=== PATIENT | male | born 1950 | race Two or more races ===

== ENCOUNTER → 2017-02-09 | Outpatient (CLI) | payer BC ==
[2017-02-09 08:13] LABS: Urine RBC None Seen /hpf (0 - 3)
[2017-02-09 08:22] LABS: Basophils # (auto) 0 uL; Basophils % (auto) 0.6 % (0.0-2.0); Eosinophils # (auto) 0.1 uL; Eosinophils % (auto) 2.3 % (0.0-7.0); Hematocrit 43.8 % (41.0-53.0); Lymphocytes # (auto) 1.4 uL; Mean Corpuscular Hgb Conc. 34.3 g/dL (32.0-36.0); Mean Corpuscular Volume 93.2 fL (80.0-100.0); Mean Platelet Volume 10.1 fL (7.4-10.4); Monocytes # (auto) 0.5 uL; Monocytes % (auto) 8.8 % (0.0-12.0); Neutrophils # (auto) 3.4 uL; Neutrophils % (auto) 63.3 % (37.0-80.0); Platelet Count (auto) 150 10^3/uL (140-450); Red Cell Distribution Width 12.8 % (11.6-16.0); White Blood Cell 5.4 10^3/uL (4.4-10.8)
[2017-02-09 08:27] LABS: Urine Bilirubin Negative (Negative); Urine Blood Negative /uL (Negative); Urine Color Yellow (Yellow); Urine Glucose Normal (Normal); Urine Ketone Negative (Negative); Urine Mucus FEW (None Seen); Urine Nitrite Negative (Negative); Urine Urobilinogen Normal (Negative); Urine pH 5.5 (5.0-8.0)
[2017-02-09 09:01] LABS: Albumin 3.5 g/dL (3.4-5.0); BUN/Creatinine Ratio 19.3; Bilirubin, Total 0.7 mg/dL (0.2-1.0); Calcium 8.5 mg/dL (8.5-10.1); Potassium 3.6 mmol/L (3.5-5.1); Total Protein 7.1 g/dL (6.4-8.2)
== END | disposition home or self-care (01) ==
LOC: LAB 07:53
PROVIDERS: ATTEND Family Medicine
DX: E11.8 Type 2 diabetes mellitus with unspecified complications (principal); E78.5 Hyperlipidemia, unspecified
CPT/HCPCS: 36415; 80053; 80061; 81001; 82043; 82306; 83036; 84153; 84154; 85025

== ENCOUNTER → 2018-02-03 | Day surgery (SDC) | payer BC ==
[2018-01-31 16:09] LABS: Basophils # (auto) 0 uL; Basophils % (auto) 0.5 % (0.0-2.0); Eosinophils # (auto) 0.2 uL; Eosinophils % (auto) 2.3 % (0.0-7.0); Hematocrit 41.9 % (41.0-53.0); Hemoglobin 14.4 g/dL (13.5-17.5); Lymphocytes # (auto) 1.8 uL; Lymphocytes % (auto) 26.4 % (10.0-50.0); Mean Corpuscular Hemoglobin 32.7 pg (28.0-32.0); Mean Corpuscular Hgb Conc. 34.3 g/dL (32.0-36.0); Mean Corpuscular Volume 95.3 fL (80.0-100.0); Monocytes # (auto) 0.7 uL; Monocytes % (auto) 10.1 % (0.0-12.0); Neutrophils # (auto) 4.2 uL; Neutrophils % (auto) 60.7 % (37.0-80.0); Nucleated Red Blood Cells % 0.3 %; Platelet Count (auto) 160 10^3/uL (140-450); Red Cell Distribution Width 13.4 % (11.8-14.3); White Blood Cell 6.9 10^3/uL (4.4-10.8)
[2018-01-31 16:13] LABS: Urine Bacteria NONE SEEN /hpf (None Seen); Urine Blood Negative /uL (Negative); Urine Specific Gravity 1.018 (1.001-1.035); Urine WBC 2 /hpf (0 - 3)
[2018-01-31 16:20] LABS: Albumin 3.9 g/dL (3.4-5.0); BUN/Creatinine Ratio 13.7; Bilirubin, Total 0.7 mg/dL (0.2-1.0); Calcium 8.7 mg/dL (8.5-10.1); Potassium 3.8 mmol/L (3.5-5.1); Total Protein 7.5 g/dL (6.4-8.2)
[2018-01-31 16:24] LABS: INR 0.96 (0.9-1.15); Partial Thromboplastin Time 25.7 sec (22.64-33.71); Prothrombin Time 10.5 sec (9.37-12.3)
[~2018-02-03] VITALS: Ht 180.3 cm; Wt 100.7 kg
[~2018-02-03] MED LIST: ASPI81TA27 PO; BUPIVACAINE HCL 50 ML ONE; KETOROLAC TROMETH 30 MG/ML 1ML VIAL ONE; LIDOCAINE HCL 2 %PF INJ 10ML AMP IJ ONE; LIDOCAINE W/ EPINEPHRINE 2% INJ 20ML VIAL ONE; MIDAZOLAM HCL 1MG/1ML-2 ML VIAL ONE; MORPHINE SULFATE 4 MG/ML SYR/VIAL IV PRN; NALOXONE HCL 0.4 MG/ML VIAL IV PRN; ONDANSETRON HCL 4 MG/2 ML VIAL IV ONE; PROMETHAZINE HCL 25 MG/ML 1ML IV ONE; PROPOFOL 10 MG/ML 20 ML IV ONE; ROCURONIUM 10MG/ML 10ML VIAL IV ONE; SUCCINYLCHOLINE CHLORIDE 20 MG/ML 10ML VIAL IV ONE; ceFAZolin 1GM/50ML 50 ML IV ONE; ePHEDrine SULFATE 50 MG/ML AMP ONE; fentaNYL CITRATE 100 MCG/2 ML VL ONE; hydrALAZINE HCL 20 MG/ML VL IV PRN
[2018-02-03 12:10] VITALS: BP 122/71
== END | disposition home or self-care (01) ==
LOC: SUR 06:58
PROVIDERS: ATTEND Orthopaedic Surgery
DX: M75.102 Unspecified rotator cuff tear or rupture of left shoulder, not specified as traumatic (principal); R22.32 Localized swelling, mass and lump, left upper limb; M75.42 Impingement syndrome of left shoulder; M13.812 Other specified arthritis, left shoulder; E66.9 Obesity, unspecified; Z68.31 Body mass index [BMI] 31.0-31.9, adult; Z90.49 Acquired absence of other specified parts of digestive tract
CPT/HCPCS: 23180; 23412; 23415; 36415; 80053; 81001; 85025; 85610; 85730; 88307; 88311; J0330; J0690; J1885; J2250; J2405; J2550; J2704; J3010; J3490

== ENCOUNTER 2018-02-04 03:00 | Emergency (ER) | payer BC ==
[~2018-02-04] VITALS: Ht 180.3 cm; Wt 100.7 kg
[~2018-02-04 03:00] MED LIST changes: -BUPIVACAINE HCL 50 ML ONE; -KETOROLAC TROMETH 30 MG/ML 1ML VIAL ONE; -LIDOCAINE HCL 2 %PF INJ 10ML AMP IJ ONE; -LIDOCAINE W/ EPINEPHRINE 2% INJ 20ML VIAL ONE; -MIDAZOLAM HCL 1MG/1ML-2 ML VIAL ONE; -MORPHINE SULFATE 4 MG/ML SYR/VIAL IV PRN; -NALOXONE HCL 0.4 MG/ML VIAL IV PRN; -ONDANSETRON HCL 4 MG/2 ML VIAL IV ONE; -PROMETHAZINE HCL 25 MG/ML 1ML IV ONE; -PROPOFOL 10 MG/ML 20 ML IV ONE; -ROCURONIUM 10MG/ML 10ML VIAL IV ONE; -SUCCINYLCHOLINE CHLORIDE 20 MG/ML 10ML VIAL IV ONE; -ceFAZolin 1GM/50ML 50 ML IV ONE; -ePHEDrine SULFATE 50 MG/ML AMP ONE; -fentaNYL CITRATE 100 MCG/2 ML VL ONE; -hydrALAZINE HCL 20 MG/ML VL IV PRN
[2018-02-04] MEDS ORDERED: SODIUM CHLORIDE 0.9% 1,000 ML IV ONE (07:19)
[2018-02-04] MEDS ORDERED: KETOROLAC TROMETH 30 MG/ML 1ML VIAL IV ONE (07:30)
[2018-02-04] MEDS ORDERED: MORPHINE SULFATE 8mg/ml INJ SDV IV ONE (07:30)
[2018-02-04] MEDS ORDERED: METOCLOPRAMIDE HCL 5MG/ml INJ 2ml VIAL IV ONE (07:30)
[2018-02-04 08:03] LABS: Basophils # (auto) 0 uL; Basophils % (auto) 0.2 % (0.0-2.0); Eosinophils # (auto) 0 uL; Eosinophils % (auto) 0.3 % (0.0-7.0); Hematocrit 39.9 % (41.0-53.0); Hemoglobin 13.9 g/dL (13.5-17.5); Lymphocytes # (auto) 1.2 uL; Mean Corpuscular Hemoglobin 32.9 pg (28.0-32.0); Mean Corpuscular Hgb Conc. 34.9 g/dL (32.0-36.0); Mean Corpuscular Volume 94.2 fL (80.0-100.0); Monocytes # (auto) 0.7 uL; Monocytes % (auto) 7.6 % (0.0-12.0); Neutrophils # (auto) 7.7 uL; Neutrophils % (auto) 79.9 % (37.0-80.0); Platelet Count (auto) 152 10^3/uL (140-450); Red Blood Cells 4.23 10^6/uL (4.5-5.90); Red Cell Distribution Width 13.4 % (11.8-14.3); White Blood Cell 9.7 10^3/uL (4.4-10.8)
[2018-02-04 08:21] LABS: Calcium 8.9 mg/dL (8.5-10.1); Magnesium 2.1 mg/dL (1.6-2.6); Potassium 3.9 mmol/L (3.5-5.1)
[2018-02-04 08:24] LABS: BUN/Creatinine Ratio 11.4
[2018-02-04] MEDS ORDERED: PROMETHAZINE HCL 25 MG/ML 1ML IV ONE (11:00)
[2018-02-04] MEDS ORDERED: MEPERIDINE HCL (50 MG/ML) 1 ML VIAL IV ONE (11:00)
[2018-02-04] MEDS ORDERED: SODIUM CHLORIDE 0.9% 1,000 ML IV SCH (11:01)
[2018-02-04] MEDS ORDERED: LORazepam 0.5 MG TAB PO PRN (11:15)
[2018-02-04] MEDS ORDERED: MORPHINE SULFATE 8mg/ml INJ SDV IV PRN ×2 (11:15)
[2018-02-04] MEDS ORDERED: ACETAMINOPHEN 500 MG TAB PO PRN (11:15)
[2018-02-04] MEDS ORDERED: NITROGLYCERIN 0.4 MG SL TAB SL PRN (11:15)
[2018-02-04] MEDS ORDERED: PROMETHAZINE HCL 25 MG/ML 1ML IV PRN (11:15)
[2018-02-04] MEDS ORDERED: TEMAZEPAM 15 MG CAP PO PRN (11:15)
[2018-02-04] MEDS ORDERED: HYDROcodone-ACET 5/325MG TAB PO PRN (11:15)
[2018-02-04] MEDS ORDERED: LACTULOSE 20Gm/30ML SOLN PO PRN (11:15)
[2018-02-04 12:30] VITALS: BP 145/80
[2018-02-05] MEDS ORDERED: PANTOPRAZOLE 40 MG TAB PO SCH (10:00)
== END 2018-02-04 12:17 | disposition home or self-care (01) ==
LOC: ER 03:10 → TELE 03:11 → UNDOADMIN 03:11 → ER 12:17
DX: M25.512 Pain in left shoulder (principal); E11.65 Type 2 diabetes mellitus with hyperglycemia
CPT/HCPCS: 36415; 73200; 80048; 83735; 85025; 96361; 96374; 96375; 99285; J1885; J2270; J2765; J7030

== ENCOUNTER → 2018-04-19 | Outpatient (CLI) | payer BC ==
[2018-04-19 08:06] LABS: Basophils # (auto) 0 uL; Basophils % (auto) 0.4 % (0.0-2.0); Eosinophils # (auto) 0.2 uL; Eosinophils % (auto) 2.7 % (0.0-7.0); Hematocrit 45.4 % (41.0-53.0); Hemoglobin 15.5 g/dL (13.5-17.5); Lymphocytes # (auto) 1.7 uL; Lymphocytes % (auto) 25.4 % (10.0-50.0); Mean Corpuscular Hemoglobin 30.9 pg (28.0-32.0); Mean Corpuscular Hgb Conc. 34.1 g/dL (32.0-36.0); Mean Corpuscular Volume 90.7 fL (80.0-100.0); Monocytes # (auto) 0.5 uL; Neutrophils # (auto) 4.3 uL; Neutrophils % (auto) 63.5 % (37.0-80.0); Platelet Count (auto) 163 10^3/uL (140-450); Red Cell Distribution Width 12.9 % (11.8-14.3); White Blood Cell 6.7 10^3/uL (4.4-10.8)
[2018-04-19 08:41] LABS: Urine Bacteria NONE SEEN /hpf (None Seen); Urine Blood Negative /uL (Negative); Urine Specific Gravity 1.021 (1.001-1.035); Urine WBC 1 /hpf (0 - 3)
[2018-04-19 08:47] LABS: Albumin 3.9 g/dL (3.4-5.0); Bilirubin, Total 0.7 mg/dL (0.2-1.0); Calcium 9.5 mg/dL (8.5-10.1); Potassium 4.1 mmol/L (3.5-5.1); Total Protein 8.1 g/dL (6.4-8.2)
== END | disposition home or self-care (01) ==
LOC: LAB 07:21
PROVIDERS: ATTEND Family Medicine
DX: I10 Essential (primary) hypertension (principal); E78.5 Hyperlipidemia, unspecified; N40.0 Benign prostatic hyperplasia without lower urinary tract symptoms; E11.65 Type 2 diabetes mellitus with hyperglycemia
CPT/HCPCS: 36415; 80053; 80061; 81001; 82043; 82270; 82306; 83036; 84153; 85025

== ENCOUNTER → 2018-10-04 | Outpatient (CLI) | payer BC, MEDICARE ==
[2018-10-04 08:33] LABS: Basophils # (auto) 0 uL; Basophils % (auto) 0.3 % (0.0-2.0); Eosinophils # (auto) 0.2 uL; Eosinophils % (auto) 3.3 % (0.0-7.0); Hematocrit 44.9 % (41.0-53.0); Hemoglobin 15.2 g/dL (13.5-17.5); Lymphocytes # (auto) 1.5 uL; Lymphocytes % (auto) 23.8 % (10.0-50.0); Mean Corpuscular Hgb Conc. 33.9 g/dL (32.0-36.0); Mean Corpuscular Volume 91.5 fL (80.0-100.0); Monocytes # (auto) 0.6 uL; Neutrophils # (auto) 3.9 uL; Neutrophils % (auto) 63.6 % (37.0-80.0); Nucleated Red Blood Cells % 0.1 %; Platelet Count (auto) 152 10^3/uL (140-450); Red Blood Cells 4.91 10^6/uL (4.5-5.90); Red Cell Distribution Width 13.7 % (11.8-14.3); White Blood Cell 6.2 10^3/uL (4.4-10.8)
[2018-10-04 08:43] LABS: Calcium 9.6 mg/dL (8.5-10.1); Potassium 4.8 mmol/L (3.5-5.1)
== END | disposition home or self-care (01) ==
LOC: LAB 07:13
PROVIDERS: ATTEND Internal Medicine
DX: E11.9 Type 2 diabetes mellitus without complications (principal); E78.5 Hyperlipidemia, unspecified; N40.0 Benign prostatic hyperplasia without lower urinary tract symptoms; I10 Essential (primary) hypertension
CPT/HCPCS: 36415; 80053; 80061; 82043; 83036; 84443; 85025

== ENCOUNTER → 2019-10-03 | Outpatient (CLI) | payer BC, MEDICARE ==
[~2019-10-03] MED LIST changes: +ASPI-404 PO; -ASPI81TA27 PO
[2019-10-03 08:50] LABS: Basophils # (auto) 0 uL; Basophils % (auto) 0.4 % (0.0-2.0); Eosinophils # (auto) 0.2 uL; Hematocrit 41.2 % (41.0-53.0); Hemoglobin 14.2 g/dL (13.5-17.5); Lymphocytes # (auto) 1.4 uL; Lymphocytes % (auto) 27.1 % (10.0-50.0); Mean Corpuscular Hemoglobin 31.7 pg (28.0-32.0); Mean Corpuscular Hgb Conc. 34.4 g/dL (32.0-36.0); Mean Corpuscular Volume 92.3 fL (80.0-100.0); Monocytes # (auto) 0.6 uL; Monocytes % (auto) 10.5 % (0.0-12.0); Neutrophils # (auto) 3.2 uL; Nucleated Red Blood Cells % 0.1 %; Platelet Count (auto) 130 10^3/uL (140-450); Red Blood Cells 4.46 10^6/uL (4.5-5.90); Red Cell Distribution Width 13.4 % (11.8-14.3); White Blood Cell 5.4 10^3/uL (4.4-10.8)
[2019-10-03 09:14] LABS: Albumin 3.8 g/dL (3.4-5.0); Potassium 4.1 mmol/L (3.5-5.1)
[2019-10-03 09:19] LABS: BUN/Creatinine Ratio 7.6; Bilirubin, Total 0.9 mg/dL (0.2-1.0); Total Protein 7.6 g/dL (6.4-8.2)
== END | disposition home or self-care (01) ==
LOC: LAB 08:20
PROVIDERS: ATTEND Internal Medicine
DX: I10 Essential (primary) hypertension (principal); E11.9 Type 2 diabetes mellitus without complications; E78.5 Hyperlipidemia, unspecified; N40.0 Benign prostatic hyperplasia without lower urinary tract symptoms
CPT/HCPCS: 36415; 80053; 80061; 82043; 83036; 84153; 84154; 84443; 85025

== ENCOUNTER → 2019-10-11 | Outpatient (CLI) | payer BC | END | disposition home or self-care (01) | LOC: LAB 13:57 | PROVIDERS: ATTEND Internal Medicine | DX: I10 Essential (primary) hypertension (principal); E11.9 Type 2 diabetes mellitus without complications; E78.5 Hyperlipidemia, unspecified; N40.0 Benign prostatic hyperplasia without lower urinary tract symptoms | CPT/HCPCS: 82270 ==

== ENCOUNTER → 2020-01-09 | Outpatient (CLI) | payer BC ==
[2020-01-09 10:46] LABS: Albumin 3.9 g/dL (3.4-5.0); Calcium 9.5 mg/dL (8.5-10.1); Potassium 3.7 mmol/L (3.5-5.1)
[2020-01-09 10:51] LABS: BUN/Creatinine Ratio 10.9; Bilirubin, Total 0.9 mg/dL (0.2-1.0); Total Protein 7.8 g/dL (6.4-8.2)
[2020-01-09 11:07] LABS: Basophils # (auto) 0 10 ^3/uL (0-0.2); Basophils % (auto) 0.2 % (0.0-2.0); Eosinophils # (auto) 0.1 10 ^3/uL (0-0.8); Hematocrit 42.4 % (41.0-53.0); Hemoglobin 14.7 g/dL (13.5-17.5); Lymphocytes # (auto) 1.5 10 ^3/uL (0.4-5.4); Lymphocytes % (auto) 25.8 % (10.0-50.0); Mean Corpuscular Hgb Conc. 34.8 g/dL (32.0-36.0); Mean Corpuscular Volume 92.1 fL (80.0-100.0); Monocytes # (auto) 0.5 10 ^3/uL (0-1.3); Monocytes % (auto) 8.2 % (0.0-12.0); Neutrophils # (auto) 3.8 10 ^3/uL (1.6-8.6); Neutrophils % (auto) 63.8 % (37.0-80.0); Nucleated Red Blood Cells % 0.9 %; Platelet Count (auto) 144 10^3/uL (140-450); White Blood Cell 5.9 10^3/uL (4.4-10.8)
== END | disposition home or self-care (01) ==
LOC: LAB 10:05
PROVIDERS: ATTEND Internal Medicine
DX: E11.9 Type 2 diabetes mellitus without complications (principal); E78.5 Hyperlipidemia, unspecified; N40.0 Benign prostatic hyperplasia without lower urinary tract symptoms
CPT/HCPCS: 36415; 80053; 80061; 82043; 83036; 84153; 84154; 84443; 85025

== ENCOUNTER → 2020-01-11 | Outpatient (CLI) | payer BC | END | disposition home or self-care (01) | LOC: LAB 12:31 | PROVIDERS: ATTEND Internal Medicine | DX: E11.9 Type 2 diabetes mellitus without complications (principal); E78.5 Hyperlipidemia, unspecified; N40.0 Benign prostatic hyperplasia without lower urinary tract symptoms | CPT/HCPCS: 82270 ==

== ENCOUNTER → 2020-09-25 | Outpatient (CLI) | payer BC ==
[~2020-09-25] MED LIST changes: -ASPI-404 PO; +ASPI-543 PO
[2020-09-25 08:20] LABS: Albumin 3.8 g/dL (3.4-5.0); Potassium 3.9 mmol/L (3.5-5.1)
[2020-09-25 08:28] LABS: BUN/Creatinine Ratio 15.6; Bilirubin, Total 0.9 mg/dL (0.2-1.0); Calcium 9.6 mg/dL (8.5-10.1); Total Protein 7.6 g/dL (6.4-8.2)
[2020-09-26 12:59] LABS: Hepatitis A Ab IgM Negative; Hepatitis B Core IgM Negative; Hepatitis B Surface Antigen Negative (Negative); Hepatitis C Antibody Negative (Negative)
== END | disposition home or self-care (01) ==
LOC: LAB 07:32
PROVIDERS: ATTEND Internal Medicine
DX: E11.9 Type 2 diabetes mellitus without complications (principal); E78.5 Hyperlipidemia, unspecified; R79.89 Other specified abnormal findings of blood chemistry
CPT/HCPCS: 36415; 80053; 80061; 80074; 82306; 83036

== ENCOUNTER → 2020-11-04 | Outpatient (CLI) | payer BC | END | disposition home or self-care (01) | LOC: LAB 14:23 | PROVIDERS: ATTEND Physician Assistant | DX: U07.1 COVID-19 (principal) | CPT/HCPCS: C9803; U0003 ==

== ENCOUNTER 2020-11-07 11:30 | Outpatient (CLI) | payer BC ==
[2020-11-07] VITALS (7 sets, daily range): BP systolic 125–152; BP diastolic 68–86
[~2020-11-07] VITALS: Ht 30.5 cm; Wt 104.3 kg
[2020-11-07] MEDS ORDERED: BAMLANIVIMAB 700MG/200ML 200 ML IV ONE (12:15)
== END 2020-11-07 14:45 | disposition home or self-care (01) ==
LOC: ER 11:30
PROVIDERS: ATTEND Internal Medicine
DX: Z23 Encounter for immunization (principal); U07.1 COVID-19; E78.5 Hyperlipidemia, unspecified; I10 Essential (primary) hypertension; E87.1 Hypo-osmolality and hyponatremia; E11.9 Type 2 diabetes mellitus without complications; J45.909 Unspecified asthma, uncomplicated; I95.9 Hypotension, unspecified; Z79.01 Long term (current) use of anticoagulants; Z79.891 Long term (current) use of opiate analgesic; Z79.899 Other long term (current) drug therapy
CPT/HCPCS: M0239; Q0239

== ENCOUNTER 2020-11-20 08:42 | Inpatient (IN) | payer BC ==
[~2020-11-20] VITALS: Ht 172.7 cm; Wt 96.0 kg
[2020-11-20] MEDS ORDERED: cefTRIAXone 1GM/50ML D5W 50 ML IV ONE (09:00)
[2020-11-20 09:31] LABS: Basophils # (auto) 0.1 10 ^3/uL (0-0.2); Basophils % (auto) 0.9 % (0.0-2.0); Eosinophils # (auto) 0 10 ^3/uL (0-0.8); Hematocrit 40.2 % (41.0-53.0); Hemoglobin 14.1 g/dL (13.5-17.5); Lymphocytes # (auto) 0.5 10 ^3/uL (0.4-5.4); Lymphocytes % (auto) 5.8 % (10.0-50.0); Mean Corpuscular Hemoglobin 32.5 pg (28.0-32.0); Mean Corpuscular Hgb Conc. 35.1 g/dL (32.0-36.0); Mean Corpuscular Volume 92.7 fL (80.0-100.0); Monocytes # (auto) 0.4 10 ^3/uL (0-1.3); Monocytes % (auto) 4.7 % (0.0-12.0); Neutrophils # (auto) 6.9 10 ^3/uL (1.6-8.6); Neutrophils % (auto) 88.6 % (37.0-80.0); Nucleated Red Blood Cells % 0.1 %; Platelet Count (auto) 178 10^3/uL (140-450); Red Blood Cells 4.33 10^6/uL (4.5-5.90); White Blood Cell 7.7 10^3/uL (4.4-10.8)
[2020-11-20 09:41] LABS: Albumin 2.4 g/dL (3.4-5.0); Anion Gap 10 (5-15); Blood Urea Nitrogen 35 mg/dL (7-18); Calcium 8.5 mg/dL (8.5-10.1); Carbon Dioxide 23 mmol/L (21-32); Chloride 98 mmol/L (98-107); Glucose 390 mg/dL (74-106); Potassium 4.2 mmol/L (3.5-5.1); Sodium 131 mmol/L (136-145)
[2020-11-20 09:49] LABS: CRP High Sensitivity 18.3 mg/dL (< 0.3)
[2020-11-20 09:51] LABS: Alanine Aminotransferase 110 U/L (16-61); Alkaline Phosphatase 122 U/L (45-117); Aspartate Aminotransferase 63 U/L (15-37); BUN/Creatinine Ratio 24.6; Bilirubin, Total 0.8 mg/dL (0.2-1.0); GFR African American 63 mL/min; GFR Non-African American 52 mL/min; Total Protein 7.2 g/dL (6.4-8.2)
[2020-11-20] MEDS ORDERED: DexAMETHasone SOD PHOS 10MG/1ML VIAL INJ IV ONE ×2 (11:15→12:15)
[2020-11-20] MEDS ORDERED: InsuLIN REG 1unit/0.01ml Soln (100units/ml) IV ONE (11:15)
[2020-11-20] MEDS ORDERED: AZITHROMYCIN 500MG/ 250ML 250 ML IV ONE (11:15)
[2020-11-20] MEDS ORDERED: SODIUM CHLORIDE 0.9% 1,000 ML IV ONE (11:15)
[2020-11-20] MEDS ORDERED: MORPHINE SULF INJ 2 MG/ML SYRINGE 1ML IV PRN ×2 (11:30→12:00)
[2020-11-20] MEDS ORDERED: NITROGLYCERIN 0.4 MG SL TAB SL PRN (11:30)
[2020-11-20] MEDS ORDERED: REMDESIVIR PER PHARMACY 0 ML IV SCH (11:30)
[2020-11-20] MEDS ORDERED: levoFLOXacin 500MG 100 ML IV ONE (12:00)
[2020-11-20] MEDS ORDERED: TEMAZEPAM 15 MG CAP PO PRN (12:00)
[2020-11-20] MEDS ORDERED: ACETAMINOPHEN 500 MG TAB PO PRN (12:00)
[2020-11-20] MEDS ORDERED: DEXTROSE (50%) 50ML SYRG IV PRN (12:00)
[2020-11-20] MEDS ORDERED: traMADol HCL 50 MG TAB PO PRN (12:00)
[2020-11-20] MEDS ORDERED: ONDANSETRON HCL 4 MG/2 ML VIAL IV PRN (12:00)
[2020-11-20] MEDS ORDERED: ASCORBIC ACID 1,000 MG TAB PO ONE (12:15)
[2020-11-20] MEDS ORDERED: ENOXAPARIN SOD 40 MG/0.4 ML SYRINGE SC ONE (12:15)
[2020-11-20] MEDS ORDERED: CHOLECALCIFEROL (VITD3) 2,000 UNIT CAP/TAB PO ONE (12:15)
[2020-11-20] MEDS ORDERED: ASPirin-EC 81 mg tab PO ONE (12:15)
[2020-11-20] MEDS ORDERED: FAMOTIDINE 20 MG TAB PO ONE (12:15)
[2020-11-20 14:00] VITALS: BP 103/66
[2020-11-20 14:02] VITALS: BP 103/66
[2020-11-20] MEDS ORDERED: REMDESIVIR 200 MG in NS 210ml LOADING DOSE ADULT IV ONE (15:00)
[2020-11-20] MEDS: CLINDAMYCIN 600MG IV 50 ML IV SCH ×2 (16:19→21:47)
[2020-11-20 16:23] VITALS: BP 118/70
[2020-11-20] MEDS: ACCU-CHEK COMFORT CURVE STRIP VI SCH ×2 (17:34→21:57)
[2020-11-20] MEDS: InsuLIN REG 1unit/0.01ml Soln (100units/ml) SC SCH ×2 (17:35→21:52)
[2020-11-20] MEDS: BUDESONIDE (INHALATION) 180 MCG IH IN SCH (19:32)
[2020-11-20] MEDS: ALBUTEROL SULF HFA 90MCG INH 200DOSE IN PRN (19:32)
[2020-11-20] MEDS: FAMOTIDINE 20 MG TAB PO SCH (21:47)
[2020-11-20] MEDS: INSULIN LANTUS (GLARGINE) 1 /0.01ml (100units/ml) SC SCH (21:57)
[2020-11-20] MEDS: ENOXAPARIN SOD 40 MG/0.4 ML SYRINGE SC SCH (21:58)
[2020-11-21] VITALS: BP 109/69
[2020-11-21] MEDS: CLINDAMYCIN 600MG IV 50 ML IV SCH (06:22)
[2020-11-21] MEDS: InsuLIN REG 1unit/0.01ml Soln (100units/ml) SC SCH ×4 (06:23→22:00)
[2020-11-21] MEDS: INSULIN LANTUS (GLARGINE) 1 /0.01ml (100units/ml) SC SCH ×2 (06:24→22:00)
[2020-11-21] MEDS: ACCU-CHEK COMFORT CURVE STRIP VI SCH ×4 (06:25→22:00)
[2020-11-21] MEDS ORDERED: IVERMECTIN 3 MG TAB PO ONE ×2 (07:00)
[2020-11-21 07:21] LABS: Basophils # (auto) 0 10 ^3/uL (0-0.2); Eosinophils # (auto) 0 10 ^3/uL (0-0.8); Hematocrit 38.1 % (41.0-53.0); Hemoglobin 13.2 g/dL (13.5-17.5); Lymphocytes # (auto) 0.6 10 ^3/uL (0.4-5.4); Lymphocytes % (auto) 4.5 % (10.0-50.0); Mean Corpuscular Hemoglobin 31.6 pg (28.0-32.0); Mean Corpuscular Hgb Conc. 34.7 g/dL (32.0-36.0); Mean Corpuscular Volume 91.1 fL (80.0-100.0); Monocytes # (auto) 0.5 10 ^3/uL (0-1.3); Monocytes % (auto) 3.6 % (0.0-12.0); Neutrophils % (auto) 91.9 % (37.0-80.0); Platelet Count (auto) 174 10^3/uL (140-450); Red Blood Cells 4.18 10^6/uL (4.5-5.90); Red Cell Distribution Width 12.9 % (11.8-14.3); White Blood Cell 13.1 10^3/uL (4.4-10.8)
[2020-11-21 07:38] LABS: Albumin 2.2 g/dL (3.4-5.0); Calcium 8.1 mg/dL (8.5-10.1)
[2020-11-21 07:42] LABS: BUN/Creatinine Ratio 35.4; Bilirubin, Total 0.5 mg/dL (0.2-1.0); Total Protein 6.4 g/dL (6.4-8.2)
[2020-11-21 08:00] VITALS: BP 105/54
[2020-11-21] MEDS ORDERED: levoFLOXacin 500MG 100 ML IV SCH (10:00)
[2020-11-21] MEDS ORDERED: ASPirin-EC 81 mg tab PO SCH (10:00)
[2020-11-21] MEDS: DexAMETHasone SOD PHOS 10MG/1ML VIAL INJ IV SCH (10:06)
[2020-11-21] MEDS: BUDESONIDE (INHALATION) 180 MCG IH IN SCH ×2 (10:06→19:21)
[2020-11-21] MEDS: ASCORBIC ACID 1,000 MG TAB PO SCH (10:07)
[2020-11-21] MEDS: CHOLECALCIFEROL (VITD3) 2,000 UNIT CAP/TAB PO SCH (10:07)
[2020-11-21] MEDS: FAMOTIDINE 20 MG TAB PO SCH ×2 (10:07→22:00)
[2020-11-21] MEDS: ZINC SULFATE 220mg CAP or TAB PO SCH (10:07)
[2020-11-21] MEDS: ENOXAPARIN SOD 40 MG/0.4 ML SYRINGE SC SCH ×2 (10:08→22:00)
[2020-11-21] MEDS ORDERED: DEXTROSE (50%) 50ML SYRG IV PRN (15:15)
[2020-11-21 16:00] VITALS: BP 114/71
[2020-11-21] MEDS: REMDESIVIR 100mg 100 MG in SODIUM CHL 0.9% 230 ML IV SCH (16:00)
[2020-11-21] MEDS ORDERED: ERGOCALCIFEROL 50,000 UNIT(1.25MG) CAP PO SCH (17:00)
[2020-11-21] MEDS ORDERED: FUROSEMIDE 20 MG/2 ML VIAL IV ONE (17:00)
[2020-11-21] MEDS: ALBUTEROL SULF HFA 90MCG INH 200DOSE IN PRN (19:21)
[2020-11-21 20:00] VITALS: BP 100/60
[2020-11-22] VITALS: BP 100/50
[2020-11-22 06:38] LABS: Potassium 3.4 mmol/L (3.5-5.1)
[2020-11-22 06:57] LABS: Albumin 2.2 g/dL (3.4-5.0); Bilirubin, Total 0.5 mg/dL (0.2-1.0); CRP High Sensitivity 6.06 mg/dL (< 0.3); Calcium 8.2 mg/dL (8.5-10.1); Total Protein 6.6 g/dL (6.4-8.2)
[2020-11-22] MEDS: ACCU-CHEK COMFORT CURVE STRIP VI SCH ×4 (07:00→21:31)
[2020-11-22 07:24] LABS: Basophils # (auto) 0 10 ^3/uL (0-0.2); Basophils % (auto) 0.2 % (0.0-2.0); Eosinophils # (auto) 0 10 ^3/uL (0-0.8); Hematocrit 39.8 % (41.0-53.0); Hemoglobin 13.4 g/dL (13.5-17.5); Lymphocytes # (auto) 1.2 10 ^3/uL (0.4-5.4); Lymphocytes % (auto) 8.6 % (10.0-50.0); Mean Corpuscular Hgb Conc. 33.6 g/dL (32.0-36.0); Mean Corpuscular Volume 92.2 fL (80.0-100.0); Monocytes # (auto) 0.6 10 ^3/uL (0-1.3); Neutrophils # (auto) 12.3 10 ^3/uL (1.6-8.6); Neutrophils % (auto) 87.2 % (37.0-80.0); Platelet Count (auto) 205 10^3/uL (140-450); Red Blood Cells 4.31 10^6/uL (4.5-5.90); White Blood Cell 14.1 10^3/uL (4.4-10.8)
[2020-11-22] MEDS: BUDESONIDE (INHALATION) 180 MCG IH IN SCH ×2 (07:50→21:34)
[2020-11-22] MEDS: ALBUTEROL SULF HFA 90MCG INH 200DOSE IN PRN ×2 (07:50→21:34)
[2020-11-22 08:00] VITALS: BP 96/65
[2020-11-22] MEDS: ENOXAPARIN SOD 40 MG/0.4 ML SYRINGE SC SCH ×2 (10:20→21:31)
[2020-11-22] MEDS: DexAMETHasone SOD PHOS 10MG/1ML VIAL INJ IV SCH (10:20)
[2020-11-22] MEDS: FUROSEMIDE 20 MG/2 ML VIAL IV SCH (10:21)
[2020-11-22] MEDS: ASCORBIC ACID 1,000 MG TAB PO SCH (10:21)
[2020-11-22] MEDS: ASPirin 81 mg TAB PO SCH (10:21)
[2020-11-22] MEDS: AZITHROMYCIN 250 MG TAB PO SCH (10:21)
[2020-11-22] MEDS: FAMOTIDINE 20 MG TAB PO SCH ×2 (10:21→21:31)
[2020-11-22] MEDS: ZINC SULFATE 220mg CAP or TAB PO SCH (10:21)
[2020-11-22] MEDS: CHOLECALCIFEROL (VITD3) 2,000 UNIT CAP/TAB PO SCH (10:21)
[2020-11-22] MEDS: InsuLIN REG 1unit/0.01ml Soln (100units/ml) SC SCH ×4 (12:25→21:13)
[2020-11-22 15:48] VITALS: BP 105/67
[2020-11-22] MEDS: REMDESIVIR 100mg 100 MG in SODIUM CHL 0.9% 230 ML IV SCH (16:10)
[2020-11-22] MEDS ORDERED: POTASSIUM CHL 20 Meq TABLET PO ONE (17:45)
[2020-11-22] MEDS: INSULIN LANTUS (GLARGINE) 1 /0.01ml (100units/ml) SC SCH (21:18)
[2020-11-23] VITALS: BP 105/61
[2020-11-23] MEDS: InsuLIN REG 1unit/0.01ml Soln (100units/ml) SC SCH ×4 (06:19→20:51)
[2020-11-23] MEDS: ACCU-CHEK COMFORT CURVE STRIP VI SCH ×4 (06:19→21:05)
[2020-11-23] MEDS: INSULIN LANTUS (GLARGINE) 1 /0.01ml (100units/ml) SC SCH ×2 (06:41→20:51)
[2020-11-23 06:46] LABS: Potassium 3.8 mmol/L (3.5-5.1)
[2020-11-23 07:07] LABS: Albumin 2.2 g/dL (3.4-5.0); BUN/Creatinine Ratio 34.5; Bilirubin, Total 0.6 mg/dL (0.2-1.0); Calcium 8.1 mg/dL (8.5-10.1); Total Protein 6.1 g/dL (6.4-8.2)
[2020-11-23] MEDS: BUDESONIDE (INHALATION) 180 MCG IH IN SCH ×2 (07:50→20:55)
[2020-11-23] MEDS: ALBUTEROL SULF HFA 90MCG INH 200DOSE IN PRN ×2 (07:50→20:55)
[2020-11-23 07:55] VITALS: BP 102/64
[2020-11-23] MEDS ORDERED: guaiFENesin 200 MG/10 ML UD GT PRN (09:30)
[2020-11-23] MEDS ORDERED: THROAT LOZENGES(CEPASTAT) MT PRN (09:30)
[2020-11-23] MEDS: FUROSEMIDE 20 MG/2 ML VIAL IV SCH (09:40)
[2020-11-23] MEDS: ENOXAPARIN SOD 40 MG/0.4 ML SYRINGE SC SCH ×2 (09:41→21:05)
[2020-11-23] MEDS: DexAMETHasone SOD PHOS 10MG/1ML VIAL INJ IV SCH (09:41)
[2020-11-23] MEDS: AZITHROMYCIN 250 MG TAB PO SCH (09:42)
[2020-11-23] MEDS: FAMOTIDINE 20 MG TAB PO SCH ×2 (09:42→21:04)
[2020-11-23] MEDS: CHOLECALCIFEROL (VITD3) 2,000 UNIT CAP/TAB PO SCH (09:42)
[2020-11-23] MEDS: ASCORBIC ACID 1,000 MG TAB PO SCH (09:43)
[2020-11-23] MEDS: ASPirin 81 mg TAB PO SCH (09:43)
[2020-11-23] MEDS: ZINC SULFATE 220mg CAP or TAB PO SCH (09:43)
[2020-11-23] MEDS: REMDESIVIR 100mg 100 MG in SODIUM CHL 0.9% 230 ML IV SCH (15:58)
[2020-11-23 16:12] VITALS: BP 127/68
[2020-11-24] VITALS: BP 105/60
[2020-11-24] MEDS: ACCU-CHEK COMFORT CURVE STRIP VI SCH ×3 (06:29→17:00)
[2020-11-24] MEDS: InsuLIN REG 1unit/0.01ml Soln (100units/ml) SC SCH ×3 (06:29→17:00)
[2020-11-24] MEDS: INSULIN LANTUS (GLARGINE) 1 /0.01ml (100units/ml) SC SCH (06:29)
[2020-11-24] MEDS: BUDESONIDE (INHALATION) 180 MCG IH IN SCH (06:50)
[2020-11-24] MEDS: ALBUTEROL SULF HFA 90MCG INH 200DOSE IN PRN (06:50)
[2020-11-24 07:05] LABS: Albumin 2.2 g/dL (3.4-5.0); Calcium 8.1 mg/dL (8.5-10.1); Potassium 3.5 mmol/L (3.5-5.1)
[2020-11-24 07:09] LABS: BUN/Creatinine Ratio 31.3; Bilirubin, Total 0.6 mg/dL (0.2-1.0); Total Protein 6.1 g/dL (6.4-8.2)
[2020-11-24 08:00] VITALS: BP 115/61
[2020-11-24] MEDS: DexAMETHasone SOD PHOS 10MG/1ML VIAL INJ IV SCH (09:14)
[2020-11-24] MEDS: ZINC SULFATE 220mg CAP or TAB PO SCH (09:15)
[2020-11-24] MEDS: FAMOTIDINE 20 MG TAB PO SCH (09:15)
[2020-11-24] MEDS: FUROSEMIDE 20 MG/2 ML VIAL IV SCH (09:15)
[2020-11-24] MEDS: CHOLECALCIFEROL (VITD3) 2,000 UNIT CAP/TAB PO SCH (09:15)
[2020-11-24] MEDS: ASCORBIC ACID 1,000 MG TAB PO SCH (09:15)
[2020-11-24] MEDS: ASPirin 81 mg TAB PO SCH (09:15)
[2020-11-24] MEDS: AZITHROMYCIN 250 MG TAB PO SCH (09:16)
[2020-11-24] MEDS: ENOXAPARIN SOD 40 MG/0.4 ML SYRINGE SC SCH (09:16)
[2020-11-24 14:40] VITALS: BP 115/61
[2020-11-24] MEDS: REMDESIVIR 100mg 100 MG in SODIUM CHL 0.9% 230 ML IV SCH (14:43)
[2020-11-24 16:00] VITALS: BP 116/73
== END 2020-11-24 17:45 | disposition home or self-care (01) | DRG 177 ==
LOC: ER 08:42 → TELE 08:43 → TELE-EAST 13:49 → TELE-WESTW 11-24 12:10
PROVIDERS: ADMIT Internal Medicine; ATTEND Internal Medicine
PROC: XW033E5 Introduction of Remdesivir Anti-infective into Peripheral Vein, Percutaneous Approach, New Technology Group 5 (ICD-10-PCS; principal; 2020-11-20)
DX: U07.1 COVID-19 (principal); J12.82 Pneumonia due to coronavirus disease 2019; J96.00 Acute respiratory failure, unspecified whether with hypoxia or hypercapnia; E44.0 Moderate protein-calorie malnutrition; D89.833 Cytokine release syndrome, grade 3; I95.9 Hypotension, unspecified; E11.65 Type 2 diabetes mellitus with hyperglycemia; J45.909 Unspecified asthma, uncomplicated; E66.3 Overweight; E55.9 Vitamin D deficiency, unspecified; E66.9 Obesity, unspecified; I10 Essential (primary) hypertension; Z68.32 Body mass index [BMI] 32.0-32.9, adult; Z79.899 Other long term (current) drug therapy; Z79.891 Long term (current) use of opiate analgesic; Z79.01 Long term (current) use of anticoagulants
CPT/HCPCS: 36415; 36600; 71045; 80053; 82728; 82805; 82962; 83036; 83615; 84484; 85025; 85379; 86141; 87426; 93005; 94640; 96365; 96368; 96375; 99291; G0378; J0696; J1100; J1815; J1956; J3490

== ENCOUNTER 2020-11-28 09:24 | Inpatient (IN) | payer BC ==
[~2020-11-28] VITALS: Ht 180.3 cm; Wt 82.0 kg
[2020-11-28 09:57] LABS: Basophils # (auto) 0.1 10 ^3/uL (0-0.2); Basophils % (auto) 0.5 % (0.0-2.0); Eosinophils # (auto) 0 10 ^3/uL (0-0.8); Eosinophils % (auto) 0.3 % (0.0-7.0); Hematocrit 44.2 % (41.0-53.0); Hemoglobin 15.6 g/dL (13.5-17.5); Lymphocytes # (auto) 0.8 10 ^3/uL (0.4-5.4); Lymphocytes % (auto) 7.7 % (10.0-50.0); Mean Corpuscular Hemoglobin 32.4 pg (28.0-32.0); Mean Corpuscular Hgb Conc. 35.2 g/dL (32.0-36.0); Monocytes # (auto) 0.6 10 ^3/uL (0-1.3); Monocytes % (auto) 5.5 % (0.0-12.0); Neutrophils # (auto) 9.1 10 ^3/uL (1.6-8.6); Nucleated Red Blood Cells % 0.1 %; Platelet Count (auto) 195 10^3/uL (140-450); Red Blood Cells 4.81 10^6/uL (4.5-5.90); Red Cell Distribution Width 12.9 % (11.8-14.3); White Blood Cell 10.6 10^3/uL (4.4-10.8)
[2020-11-28] MEDS ORDERED: NOREPINEPHRINE 8 MG/250ML KIT 250 ML IV ONE (10:00)
[2020-11-28] MEDS ORDERED: cefTRIAXone 1GM/50ML D5W 50 ML IV ONE (10:00)
[2020-11-28] MEDS ORDERED: NOREPINEPHRINE 8 MG/250ML KIT 250 ML IV SCH (10:09)
[2020-11-28 10:16] LABS: Albumin 2.6 g/dL (3.4-5.0); Anion Gap 7 (5-15); Blood Urea Nitrogen 22 mg/dL (7-18); Calcium 8.4 mg/dL (8.5-10.1); Carbon Dioxide 27 mmol/L (21-32); Chloride 101 mmol/L (98-107); Glucose 147 mg/dL (74-106); Potassium 3.7 mmol/L (3.5-5.1); Sodium 135 mmol/L (136-145)
[2020-11-28 10:25] LABS: Alanine Aminotransferase 142 U/L (16-61); Alkaline Phosphatase 111 U/L (45-117); Aspartate Aminotransferase 63 U/L (15-37); CRP High Sensitivity 2.24 mg/dL (< 0.3); GFR African American 95 mL/min; GFR Non-African American 79 mL/min; Lactate Dehydrogenase 355 U/L (87-241); Total Protein 6.9 g/dL (6.4-8.2)
[2020-11-28] MEDS ORDERED: DOPamine 1600MCG/ML D5W 250 ML IV ONE (10:45)
[2020-11-28] MEDS ORDERED: HYDROcodone-ACET 5/325MG TAB PO ONE (12:00)
[2020-11-28 12:29] LABS: Urine Bacteria NONE SEEN /hpf (None Seen); Urine Blood Negative /uL (Negative); Urine Mucus FEW (None Seen); Urine Specific Gravity 1.015 (1.001-1.035); Urine WBC <1 /hpf (0 - 3)
[2020-11-28] MEDS ORDERED: LORazepam 0.5 MG TAB PO PRN (12:30)
[2020-11-28] MEDS ORDERED: ACETAMINOPHEN 500 MG TAB PO PRN (12:30)
[2020-11-28] MEDS ORDERED: REMDESIVIR PER PHARMACY 0 ML IV SCH (12:30)
[2020-11-28] MEDS ORDERED: NITROGLYCERIN 0.4 MG SL TAB SL PRN (12:30)
[2020-11-28] MEDS ORDERED: MORPHINE SULF INJ 2 MG/ML SYRINGE 1ML IV PRN ×2 (12:30)
[2020-11-28] MEDS ORDERED: ONDANSETRON HCL 4 MG/2 ML VIAL IV PRN (12:30)
[2020-11-28] MEDS ORDERED: SODIUM CHLORIDE 0.9% 1,000 ML IV SCH (12:30)
[2020-11-28] MEDS ORDERED: ALBUMIN 25% 100 ML IV ONE (12:30)
[2020-11-28] MEDS ORDERED: ALUM & MAG HYDROX-SIMETH LIQ(MAALOX) 30 ML PO PRN (12:30)
[2020-11-28] MEDS ORDERED: HYDROcodone-ACET 5/325MG TAB PO PRN (12:30)
[2020-11-28] MEDS ORDERED: ACETAMINOPHEN 325 MG TAB PO PRN (12:30)
[2020-11-28] MEDS ORDERED: CLINDAMYCIN 600MG IV 50 ML IV ONE (12:45)
[2020-11-28] MEDS ORDERED: levoFLOXacin 750MG 150 ML IV ONE (12:45)
[2020-11-28] MEDS ORDERED: TERA5CAP42 PO (13:05)
[2020-11-28] MEDS ORDERED: LISI-275 PO (13:05)
[2020-11-28] MEDS ORDERED: ATOR20TA50 PO (13:05)
[2020-11-28] MEDS ORDERED: ERGO1CAP12 PO (13:05)
[2020-11-28] MEDS ORDERED: LEVO-28 PO (13:05)
[2020-11-28] MEDS ORDERED: BACL10TA PO (13:05)
[2020-11-28] MEDS ORDERED: METF-370 PO (13:05)
[2020-11-28 13:25] LABS: Amphetamine Screen, Urine NEGATIVE (NEGATIVE); Barbiturate Scree,Urine NEGATIVE (NEGATIVE); Benzodiazephine Screen, Urine NEGATIVE (NEGATIVE); Cannabinoid Screen, Urine NEGATIVE (NEGATIVE)
[2020-11-28 13:28] LABS: Cholesterol 87 mg/dL (< 200); Triglycerides 113 mg/dL (< 150)
[2020-11-28 13:30] LABS: HDL Cholesterol 36 mg/dL (40-59); LDL Cholesterol 43 mg/dL (< 100)
[2020-11-28 13:35] LABS: Cocaine Screen, Urine NEGATIVE (NEGATIVE); Opiate Scree,Urine POSITIVE (NEGATIVE); Phencyclidine Screen, Urine NEGATIVE (NEGATIVE)
[2020-11-28] MEDS ORDERED: BUDESONIDE (INHALATION) 180 MCG IH IN SCH (22:00)
[2020-11-28] MEDS ORDERED: ENOXAPARIN SOD 40 MG/0.4 ML SYRINGE SC SCH (22:00)
[2020-11-28] MEDS: CLINDAMYCIN 600MG IV 50 ML IV SCH (22:27)
[2020-11-29] MEDS ORDERED: BACLOFEN 10 MG TAB PO PRN (04:00)
[2020-11-29] MEDS ORDERED: ENOXAPARIN SOD 100 MG/1 ML SYRINGE SC ONE (04:00)
[2020-11-29] MEDS ORDERED: DEXTROSE (50%) 50ML SYRG IV PRN (04:15)
[2020-11-29] MEDS: CLINDAMYCIN 600MG IV 50 ML IV SCH ×3 (05:20→22:21)
[2020-11-29] MEDS: FUROSEMIDE 20 MG/2 ML VIAL IV SCH ×2 (05:20→17:20)
[2020-11-29] MEDS: InsuLIN REG 1unit/0.01ml Soln (100units/ml) SC SCH ×4 (06:56→21:46)
[2020-11-29] MEDS: ACCU-CHEK COMFORT CURVE STRIP VI SCH ×4 (06:56→21:46)
[2020-11-29 07:26] LABS: Basophils # (auto) 0 10 ^3/uL (0-0.2); Basophils % (auto) 0.3 % (0.0-2.0); Eosinophils # (auto) 0.1 10 ^3/uL (0-0.8); Eosinophils % (auto) 0.7 % (0.0-7.0); Hematocrit 39.9 % (41.0-53.0); Hemoglobin 14.1 g/dL (13.5-17.5); Lymphocytes # (auto) 0.7 10 ^3/uL (0.4-5.4); Lymphocytes % (auto) 7.9 % (10.0-50.0); Mean Corpuscular Hemoglobin 32.1 pg (28.0-32.0); Mean Corpuscular Hgb Conc. 35.2 g/dL (32.0-36.0); Mean Corpuscular Volume 91.2 fL (80.0-100.0); Monocytes # (auto) 0.6 10 ^3/uL (0-1.3); Monocytes % (auto) 6.5 % (0.0-12.0); Neutrophils # (auto) 7.3 10 ^3/uL (1.6-8.6); Neutrophils % (auto) 84.6 % (37.0-80.0); Nucleated Red Blood Cells % 0.1 %; Platelet Count (auto) 192 10^3/uL (140-450); Red Blood Cells 4.38 10^6/uL (4.5-5.90); Red Cell Distribution Width 12.8 % (11.8-14.3); White Blood Cell 8.6 10^3/uL (4.4-10.8)
[2020-11-29 07:41] LABS: Albumin 2.7 g/dL (3.4-5.0); Calcium 8.1 mg/dL (8.5-10.1); Potassium 3.6 mmol/L (3.5-5.1)
[2020-11-29 07:42] LABS: INR 1.17 (0.9-1.15); Partial Thromboplastin Time 28.7 sec (23.0-31.2)
[2020-11-29 07:44] LABS: BUN/Creatinine Ratio 15.6; Bilirubin, Total 1.3 mg/dL (0.2-1.0); Phosphorus 1.9 mg/dL (2.5-4.90); Total Protein 6.6 g/dL (6.4-8.2)
[2020-11-29] MEDS: CHOLECALCIFEROL (VITD3) 2,000 UNIT CAP/TAB PO SCH (08:13)
[2020-11-29] MEDS: LISINOPRIL 5 MG TAB PO SCH (08:13)
[2020-11-29] MEDS: ASCORBIC ACID 1,000 MG TAB PO SCH (08:13)
[2020-11-29] MEDS: ZINC SULFATE 220mg CAP or TAB PO SCH (08:13)
[2020-11-29] MEDS: DexAMETHasone SOD PHOS 10MG/1ML VIAL INJ IV SCH (08:13)
[2020-11-29] MEDS: ASPirin 81 mg TAB PO SCH (08:13)
[2020-11-29] MEDS: levoFLOXacin 750MG 150 ML IV SCH (08:13)
[2020-11-29] MEDS: FAMOTIDINE (10MG/ML) 2ML VL IV SCH ×2 (08:13→21:46)
[2020-11-29] MEDS ORDERED: DOPamine 1600MCG/ML D5W 250 ML IV ONE (09:37)
[2020-11-29] MEDS ORDERED: DOPamine 1600MCG/ML D5W 250 ML IV SCH (09:45)
[2020-11-29] MEDS: DOPamine 1600MCG/ML D5W 250 ML IV SCH (13:08)
[2020-11-29 16:00] VITALS: BP 123/78
[2020-11-29] MEDS: ATORVASTATIN 20 MG TAB PO SCH (21:46)
[2020-11-29] MEDS: ENOXAPARIN SOD 80 MG/0.8ML SYRINGE SC SCH (21:46)
[2020-11-29] MEDS: TERAZOSIN HCL 5 MG CAP PO SCH (22:07)
[2020-11-29] MEDS: ALBUTEROL SULF HFA 90MCG INH 200DOSE IN PRN (22:29)
[2020-11-30] VITALS: BP 156/66
[2020-11-30] MEDS: DOPamine 1600MCG/ML D5W 250 ML IV SCH ×2 (05:11→21:51)
[2020-11-30] MEDS: FUROSEMIDE 20 MG/2 ML VIAL IV SCH ×2 (05:11→18:02)
[2020-11-30] MEDS: CLINDAMYCIN 600MG IV 50 ML IV SCH ×3 (05:12→21:50)
[2020-11-30] MEDS: ACCU-CHEK COMFORT CURVE STRIP VI SCH ×4 (06:16→21:51)
[2020-11-30] MEDS: InsuLIN REG 1unit/0.01ml Soln (100units/ml) SC SCH ×4 (06:16→21:56)
[2020-11-30 08:00] VITALS: BP 136/62
[2020-11-30] MEDS: FAMOTIDINE (10MG/ML) 2ML VL IV SCH ×2 (11:26→21:50)
[2020-11-30] MEDS: DexAMETHasone SOD PHOS 10MG/1ML VIAL INJ IV SCH (11:26)
[2020-11-30] MEDS: ASPirin 81 mg TAB PO SCH (11:27)
[2020-11-30] MEDS: CHOLECALCIFEROL (VITD3) 2,000 UNIT CAP/TAB PO SCH (11:27)
[2020-11-30] MEDS: ASCORBIC ACID 1,000 MG TAB PO SCH (11:27)
[2020-11-30] MEDS: ZINC SULFATE 220mg CAP or TAB PO SCH (11:27)
[2020-11-30] MEDS: levoFLOXacin 750MG 150 ML IV SCH (11:27)
[2020-11-30] MEDS: LISINOPRIL 5 MG TAB PO SCH (11:28)
[2020-11-30] MEDS: ENOXAPARIN SOD 80 MG/0.8ML SYRINGE SC SCH ×2 (11:28→21:50)
[2020-11-30] MEDS: DOCUSATE SOD 100 MG CAP PO PRN (16:06)
[2020-11-30 16:08] VITALS: BP 128/78
[2020-11-30] MEDS: TERAZOSIN HCL 5 MG CAP PO SCH (21:49)
[2020-11-30] MEDS: ATORVASTATIN 20 MG TAB PO SCH (21:49)
[2020-12-01] VITALS: BP 109/60
[2020-12-01] MEDS: FUROSEMIDE 20 MG/2 ML VIAL IV SCH ×2 (05:37→17:49)
[2020-12-01] MEDS: CLINDAMYCIN 600MG IV 50 ML IV SCH ×3 (05:41→22:14)
[2020-12-01] MEDS: ACCU-CHEK COMFORT CURVE STRIP VI SCH ×4 (06:32→22:14)
[2020-12-01] MEDS: InsuLIN REG 1unit/0.01ml Soln (100units/ml) SC SCH ×4 (06:35→22:23)
[2020-12-01 06:44] LABS: Potassium 3.4 mmol/L (3.5-5.1)
[2020-12-01 06:51] LABS: Albumin 2.7 g/dL (3.4-5.0); BUN/Creatinine Ratio 24.1; Bilirubin, Total 0.7 mg/dL (0.2-1.0); Calcium 8.5 mg/dL (8.5-10.1); Total Protein 6.6 g/dL (6.4-8.2)
[2020-12-01 08:00] VITALS: BP 118/54
[2020-12-01] MEDS: DexAMETHasone SOD PHOS 10MG/1ML VIAL INJ IV SCH (09:21)
[2020-12-01] MEDS: FAMOTIDINE (10MG/ML) 2ML VL IV SCH ×2 (09:21→22:13)
[2020-12-01] MEDS: ASPirin 81 mg TAB PO SCH (09:22)
[2020-12-01] MEDS: ZINC SULFATE 220mg CAP or TAB PO SCH (09:22)
[2020-12-01] MEDS: CHOLECALCIFEROL (VITD3) 2,000 UNIT CAP/TAB PO SCH (09:23)
[2020-12-01] MEDS: ASCORBIC ACID 1,000 MG TAB PO SCH (09:23)
[2020-12-01] MEDS: DOCUSATE SOD 100 MG CAP PO PRN (09:24)
[2020-12-01] MEDS: LISINOPRIL 5 MG TAB PO SCH (09:24)
[2020-12-01] MEDS: ENOXAPARIN SOD 80 MG/0.8ML SYRINGE SC SCH ×2 (09:24→22:13)
[2020-12-01] MEDS: levoFLOXacin 750MG 150 ML IV SCH (09:33)
[2020-12-01] MEDS: DOPamine 1600MCG/ML D5W 250 ML IV SCH (13:35)
[2020-12-01 15:39] VITALS: BP 111/67
[2020-12-01 16:00] VITALS: BP 111/67
[2020-12-01] MEDS: ALBUTEROL SULF HFA 90MCG INH 200DOSE IN PRN (19:41)
[2020-12-01] MEDS: ATORVASTATIN 20 MG TAB PO SCH (22:13)
[2020-12-01] MEDS: TERAZOSIN HCL 5 MG CAP PO SCH (22:14)
[2020-12-02] VITALS: BP 135/74
[2020-12-02] MEDS: FUROSEMIDE 20 MG/2 ML VIAL IV SCH ×2 (05:21→18:00)
[2020-12-02] MEDS: CLINDAMYCIN 600MG IV 50 ML IV SCH ×2 (05:29→15:29)
[2020-12-02] MEDS: ALBUTEROL SULF HFA 90MCG INH 200DOSE IN PRN ×3 (06:23→19:45)
[2020-12-02] MEDS: ACCU-CHEK COMFORT CURVE STRIP VI SCH ×4 (06:31→22:05)
[2020-12-02] MEDS: InsuLIN REG 1unit/0.01ml Soln (100units/ml) SC SCH ×4 (06:32→22:28)
[2020-12-02 07:05] LABS: Basophils # (auto) 0 10 ^3/uL (0-0.2); Basophils % (auto) 0.1 % (0.0-2.0); Eosinophils # (auto) 0 10 ^3/uL (0-0.8); Eosinophils % (auto) 0.1 % (0.0-7.0); Hematocrit 39.3 % (41.0-53.0); Hemoglobin 13.9 g/dL (13.5-17.5); Lymphocytes # (auto) 0.8 10 ^3/uL (0.4-5.4); Lymphocytes % (auto) 8.8 % (10.0-50.0); Mean Corpuscular Hemoglobin 32.2 pg (28.0-32.0); Mean Corpuscular Hgb Conc. 35.3 g/dL (32.0-36.0); Mean Corpuscular Volume 91.1 fL (80.0-100.0); Monocytes # (auto) 0.8 10 ^3/uL (0-1.3); Monocytes % (auto) 7.8 % (0.0-12.0); Neutrophils % (auto) 83.2 % (37.0-80.0); Platelet Count (auto) 172 10^3/uL (140-450); Red Blood Cells 4.32 10^6/uL (4.5-5.90); Red Cell Distribution Width 13.1 % (11.8-14.3); White Blood Cell 9.6 10^3/uL (4.4-10.8)
[2020-12-02 07:26] LABS: Potassium 3.8 mmol/L (3.5-5.1)
[2020-12-02 07:34] LABS: Albumin 2.7 g/dL (3.4-5.0); BUN/Creatinine Ratio 26.3; Bilirubin, Total 0.7 mg/dL (0.2-1.0); Calcium 8.3 mg/dL (8.5-10.1); Total Protein 5.7 g/dL (6.4-8.2)
[2020-12-02 08:00] VITALS: BP 81/53
[2020-12-02] MEDS ORDERED: DOPamine 1600MCG/ML D5W 250 ML IV SCH (08:45)
[2020-12-02] MEDS ORDERED: IOHEXOL 350 MG/ML 100ML IJ ONE (08:47)
[2020-12-02] MEDS ORDERED: SODIUM CHLORIDE 0.9% 500 ML IV ONE (09:45)
[2020-12-02] MEDS: LISINOPRIL 5 MG TAB PO SCH (10:00)
[2020-12-02] MEDS: DOPamine 1600MCG/ML D5W 250 ML IV SCH (10:01)
[2020-12-02] MEDS: CHOLECALCIFEROL (VITD3) 2,000 UNIT CAP/TAB PO SCH (10:02)
[2020-12-02] MEDS: ENOXAPARIN SOD 80 MG/0.8ML SYRINGE SC SCH ×2 (10:02→22:05)
[2020-12-02] MEDS: ASPirin 81 mg TAB PO SCH (10:02)
[2020-12-02] MEDS: ZINC SULFATE 220mg CAP or TAB PO SCH (10:02)
[2020-12-02] MEDS: ASCORBIC ACID 1,000 MG TAB PO SCH (10:02)
[2020-12-02] MEDS: DexAMETHasone SOD PHOS 10MG/1ML VIAL INJ IV SCH (10:46)
[2020-12-02] MEDS: FAMOTIDINE (10MG/ML) 2ML VL IV SCH ×2 (10:46→22:04)
[2020-12-02] MEDS: levoFLOXacin 750MG 150 ML IV SCH (10:46)
[2020-12-02] MEDS ORDERED: LEVOTHYROXINE SODIUM 25 MCG TAB PO ONE (11:30)
[2020-12-02 12:30] VITALS: BP 97/57
[2020-12-02 16:00] VITALS: BP 121/52
[2020-12-02 22:00] VITALS: BP 98/57
[2020-12-02] MEDS: ATORVASTATIN 20 MG TAB PO SCH (22:04)
[2020-12-02] MEDS: TERAZOSIN HCL 5 MG CAP PO SCH (22:04)
[2020-12-03] MEDS: DOPamine 1600MCG/ML D5W 250 ML IV SCH ×2 (02:11→18:57)
[2020-12-03 05:00] VITALS: BP 71/42
[2020-12-03] MEDS: FUROSEMIDE 20 MG/2 ML VIAL IV SCH ×2 (06:00→18:00)
[2020-12-03] MEDS: LEVOTHYROXINE SODIUM 25 MCG TAB PO SCH (06:14)
[2020-12-03] MEDS: ACCU-CHEK COMFORT CURVE STRIP VI SCH ×4 (06:14→21:57)
[2020-12-03] MEDS: InsuLIN REG 1unit/0.01ml Soln (100units/ml) SC SCH ×4 (06:27→21:55)
[2020-12-03 07:38] LABS: Potassium 3.7 mmol/L (3.5-5.1)
[2020-12-03 07:47] LABS: Albumin 2.7 g/dL (3.4-5.0); BUN/Creatinine Ratio 27.3; Bilirubin, Total 0.7 mg/dL (0.2-1.0); Calcium 8.6 mg/dL (8.5-10.1); Magnesium 2.3 mg/dL (1.6-2.6); Total Protein 6.3 g/dL (6.4-8.2)
[2020-12-03 09:00] VITALS: BP 96/56
[2020-12-03] MEDS: ZINC SULFATE 220mg CAP or TAB PO SCH (09:34)
[2020-12-03] MEDS: ASPirin 81 mg TAB PO SCH (09:34)
[2020-12-03] MEDS: FAMOTIDINE (10MG/ML) 2ML VL IV SCH ×2 (09:34→22:26)
[2020-12-03] MEDS: ASCORBIC ACID 1,000 MG TAB PO SCH (09:35)
[2020-12-03] MEDS: CHOLECALCIFEROL (VITD3) 2,000 UNIT CAP/TAB PO SCH (09:35)
[2020-12-03] MEDS: ENOXAPARIN SOD 80 MG/0.8ML SYRINGE SC SCH ×2 (09:36→22:27)
[2020-12-03] MEDS: LISINOPRIL 5 MG TAB PO SCH (10:00)
[2020-12-03] MEDS: MIDODRINE HCL 10 MG TAB PO SCH ×2 (11:56→19:03)
[2020-12-03 13:00] VITALS: BP 98/54
[2020-12-03 16:53] VITALS: BP 115/63
[2020-12-03] MEDS: ALBUTEROL SULF HFA 90MCG INH 200DOSE IN PRN (19:09)
[2020-12-03 22:00] VITALS: BP 129/67
[2020-12-03] MEDS: ATORVASTATIN 20 MG TAB PO SCH (22:27)
[2020-12-03] MEDS: TERAZOSIN HCL 5 MG CAP PO SCH (22:27)
[2020-12-04 05:00] VITALS: BP 88/53
[2020-12-04] MEDS: FUROSEMIDE 20 MG/2 ML VIAL IV SCH ×2 (06:00→18:00)
[2020-12-04] MEDS: ALBUTEROL SULF HFA 90MCG INH 200DOSE IN PRN ×2 (06:11→19:19)
[2020-12-04] MEDS: LEVOTHYROXINE SODIUM 25 MCG TAB PO SCH (06:44)
[2020-12-04] MEDS: InsuLIN REG 1unit/0.01ml Soln (100units/ml) SC SCH ×4 (06:44→21:55)
[2020-12-04] MEDS: MIDODRINE HCL 10 MG TAB PO SCH ×3 (06:44→17:15)
[2020-12-04] MEDS: ACCU-CHEK COMFORT CURVE STRIP VI SCH ×4 (06:44→22:00)
[2020-12-04 06:50] LABS: Albumin 2.6 g/dL (3.4-5.0); Calcium 8.7 mg/dL (8.5-10.1); Potassium 3.6 mmol/L (3.5-5.1)
[2020-12-04 06:52] LABS: BUN/Creatinine Ratio 32.2
[2020-12-04 06:55] LABS: Bilirubin, Total 0.9 mg/dL (0.2-1.0); Total Protein 5.8 g/dL (6.4-8.2)
[2020-12-04 09:00] VITALS: BP 94/53
[2020-12-04] MEDS: FAMOTIDINE (10MG/ML) 2ML VL IV SCH ×2 (09:56→22:15)
[2020-12-04] MEDS: ASCORBIC ACID 1,000 MG TAB PO SCH (09:56)
[2020-12-04] MEDS: ASPirin 81 mg TAB PO SCH (09:56)
[2020-12-04] MEDS: CHOLECALCIFEROL (VITD3) 2,000 UNIT CAP/TAB PO SCH (09:56)
[2020-12-04] MEDS: ZINC SULFATE 220mg CAP or TAB PO SCH (09:56)
[2020-12-04] MEDS: ENOXAPARIN SOD 80 MG/0.8ML SYRINGE SC SCH ×2 (09:57→22:15)
[2020-12-04] MEDS: LISINOPRIL 5 MG TAB PO SCH (09:57)
[2020-12-04] MEDS: DOPamine 1600MCG/ML D5W 250 ML IV SCH (12:26)
[2020-12-04 12:32] VITALS: BP 119/69
[2020-12-04 16:38] VITALS: BP 106/62
[2020-12-04 22:00] VITALS: BP 129/70
[2020-12-04] MEDS: TERAZOSIN HCL 5 MG CAP PO SCH (22:15)
[2020-12-05] MEDS: DOPamine 1600MCG/ML D5W 250 ML IV SCH ×2 (04:00→20:00)
[2020-12-05 05:00] VITALS: BP 87/47
[2020-12-05] MEDS: FUROSEMIDE 20 MG/2 ML VIAL IV SCH ×2 (06:00→17:29)
[2020-12-05 06:21] LABS: Basophils # (auto) 0 10 ^3/uL (0-0.2); Basophils % (auto) 0.3 % (0.0-2.0); Eosinophils # (auto) 0 10 ^3/uL (0-0.8); Eosinophils % (auto) 0.4 % (0.0-7.0); Hematocrit 38.5 % (41.0-53.0); Hemoglobin 13.6 g/dL (13.5-17.5); Lymphocytes # (auto) 1.1 10 ^3/uL (0.4-5.4); Lymphocytes % (auto) 16.3 % (10.0-50.0); Mean Corpuscular Hemoglobin 32.1 pg (28.0-32.0); Mean Corpuscular Hgb Conc. 35.3 g/dL (32.0-36.0); Mean Corpuscular Volume 90.8 fL (80.0-100.0); Monocytes # (auto) 0.6 10 ^3/uL (0-1.3); Monocytes % (auto) 8.5 % (0.0-12.0); Neutrophils % (auto) 74.5 % (37.0-80.0); Nucleated Red Blood Cells % 0.4 %; Platelet Count (auto) 132 10^3/uL (140-450); Red Blood Cells 4.24 10^6/uL (4.5-5.90); White Blood Cell 6.7 10^3/uL (4.4-10.8)
[2020-12-05 06:28] LABS: Calcium 8.7 mg/dL (8.5-10.1); Potassium 3.7 mmol/L (3.5-5.1)
[2020-12-05 06:31] LABS: Albumin 2.8 g/dL (3.4-5.0); BUN/Creatinine Ratio 25.6
[2020-12-05] MEDS: LEVOTHYROXINE SODIUM 25 MCG TAB PO SCH (06:32)
[2020-12-05] MEDS: MIDODRINE HCL 10 MG TAB PO SCH ×3 (06:32→17:29)
[2020-12-05] MEDS: InsuLIN REG 1unit/0.01ml Soln (100units/ml) SC SCH ×4 (06:34→21:22)
[2020-12-05] MEDS: ACCU-CHEK COMFORT CURVE STRIP VI SCH ×4 (06:35→21:26)
[2020-12-05 06:43] LABS: Bilirubin, Total 0.8 mg/dL (0.2-1.0); Total Protein 6.1 g/dL (6.4-8.2)
[2020-12-05 08:00] VITALS: BP 131/62
[2020-12-05] MEDS: FAMOTIDINE (10MG/ML) 2ML VL IV SCH ×2 (09:24→21:26)
[2020-12-05] MEDS: ASPirin 81 mg TAB PO SCH (09:24)
[2020-12-05] MEDS: ZINC SULFATE 220mg CAP or TAB PO SCH (09:24)
[2020-12-05] MEDS: ENOXAPARIN SOD 80 MG/0.8ML SYRINGE SC SCH ×2 (09:25→21:26)
[2020-12-05] MEDS: ASCORBIC ACID 1,000 MG TAB PO SCH (09:25)
[2020-12-05] MEDS: CHOLECALCIFEROL (VITD3) 2,000 UNIT CAP/TAB PO SCH (09:25)
[2020-12-05] MEDS: LISINOPRIL 5 MG TAB PO SCH ×2 (09:26→10:00)
[2020-12-05 12:00] VITALS: BP 131/74
[2020-12-05 16:00] VITALS: BP 107/62
[2020-12-05] MEDS: TERAZOSIN HCL 5 MG CAP PO SCH (21:26)
[2020-12-05 22:00] VITALS: BP 106/57
[2020-12-05] MEDS: ALBUTEROL SULF HFA 90MCG INH 200DOSE IN PRN (22:35)
[2020-12-06 05:00] VITALS: BP 90/60
[2020-12-06] MEDS: FUROSEMIDE 20 MG/2 ML VIAL IV SCH ×2 (06:24→17:12)
[2020-12-06] MEDS: ACCU-CHEK COMFORT CURVE STRIP VI SCH ×4 (06:24→21:48)
[2020-12-06] MEDS: LEVOTHYROXINE SODIUM 25 MCG TAB PO SCH (06:24)
[2020-12-06] MEDS: MIDODRINE HCL 10 MG TAB PO SCH ×3 (06:24→17:46)
[2020-12-06] MEDS: InsuLIN REG 1unit/0.01ml Soln (100units/ml) SC SCH ×4 (06:25→21:49)
[2020-12-06] MEDS: ALBUTEROL SULF HFA 90MCG INH 200DOSE IN PRN ×2 (07:02→19:49)
[2020-12-06 09:00] VITALS: BP 113/69
[2020-12-06] MEDS: FAMOTIDINE (10MG/ML) 2ML VL IV SCH ×2 (10:35→21:50)
[2020-12-06] MEDS: ENOXAPARIN SOD 80 MG/0.8ML SYRINGE SC SCH ×2 (10:36→21:51)
[2020-12-06] MEDS: ZINC SULFATE 220mg CAP or TAB PO SCH (10:36)
[2020-12-06] MEDS: ASPirin 81 mg TAB PO SCH (10:36)
[2020-12-06] MEDS: ASCORBIC ACID 1,000 MG TAB PO SCH (10:36)
[2020-12-06] MEDS: CHOLECALCIFEROL (VITD3) 2,000 UNIT CAP/TAB PO SCH (10:36)
[2020-12-06] MEDS: DOPamine 1600MCG/ML D5W 250 ML IV SCH (12:09)
[2020-12-06 13:00] VITALS: BP 85/53
[2020-12-06 17:00] VITALS: BP 121/70
[2020-12-06] MEDS: TERAZOSIN HCL 5 MG CAP PO SCH (21:57)
[2020-12-06 22:21] VITALS: BP 106/64
[2020-12-07] MEDS: DOPamine 1600MCG/ML D5W 250 ML IV SCH ×2 (04:18→19:41)
[2020-12-07] MEDS: FUROSEMIDE 20 MG/2 ML VIAL IV SCH (06:00)
[2020-12-07 06:09] VITALS: BP 94/54
[2020-12-07] MEDS: MIDODRINE HCL 10 MG TAB PO SCH ×3 (06:25→17:55)
[2020-12-07] MEDS: LEVOTHYROXINE SODIUM 25 MCG TAB PO SCH (06:26)
[2020-12-07] MEDS: ACCU-CHEK COMFORT CURVE STRIP VI SCH ×4 (06:26→21:43)
[2020-12-07] MEDS: InsuLIN REG 1unit/0.01ml Soln (100units/ml) SC SCH ×4 (06:27→21:41)
[2020-12-07 08:55] VITALS: BP 117/66
[2020-12-07] MEDS: FAMOTIDINE (10MG/ML) 2ML VL IV SCH ×2 (09:27→21:42)
[2020-12-07] MEDS: ASCORBIC ACID 1,000 MG TAB PO SCH (09:27)
[2020-12-07] MEDS: CHOLECALCIFEROL (VITD3) 2,000 UNIT CAP/TAB PO SCH (09:27)
[2020-12-07] MEDS: ZINC SULFATE 220mg CAP or TAB PO SCH (09:27)
[2020-12-07] MEDS: ASPirin 81 mg TAB PO SCH (09:27)
[2020-12-07] MEDS: ENOXAPARIN SOD 80 MG/0.8ML SYRINGE SC SCH (09:27)
[2020-12-07 13:00] VITALS: BP 119/80
[2020-12-07 17:00] VITALS: BP 135/51
[2020-12-07 17:57] LABS: INR 1.03 (0.9-1.15); Partial Thromboplastin Time 28.9 sec (23.0-31.2)
[2020-12-07] MEDS ORDERED: WARFARIN SODIUM 5 MG TAB PO ONE (18:30)
[2020-12-07] MEDS: TERAZOSIN HCL 5 MG CAP PO SCH (21:43)
[2020-12-07 22:00] VITALS: BP 131/66
[2020-12-08 05:00] VITALS: BP 90/54
[2020-12-08] MEDS: LEVOTHYROXINE SODIUM 25 MCG TAB PO SCH (06:23)
[2020-12-08] MEDS: MIDODRINE HCL 10 MG TAB PO SCH ×3 (06:23→17:34)
[2020-12-08] MEDS: InsuLIN REG 1unit/0.01ml Soln (100units/ml) SC SCH ×4 (06:24→22:17)
[2020-12-08] MEDS: ACCU-CHEK COMFORT CURVE STRIP VI SCH ×4 (06:25→21:52)
[2020-12-08 07:52] LABS: Basophils # (auto) 0 10 ^3/uL (0-0.2); Basophils % (auto) 0.2 % (0.0-2.0); Eosinophils # (auto) 0 10 ^3/uL (0-0.8); Eosinophils % (auto) 0.4 % (0.0-7.0); Hematocrit 37.4 % (41.0-53.0); Hemoglobin 13.2 g/dL (13.5-17.5); Lymphocytes # (auto) 1.1 10 ^3/uL (0.4-5.4); Lymphocytes % (auto) 15.9 % (10.0-50.0); Mean Corpuscular Hemoglobin 31.8 pg (28.0-32.0); Mean Corpuscular Hgb Conc. 35.2 g/dL (32.0-36.0); Mean Corpuscular Volume 90.4 fL (80.0-100.0); Monocytes # (auto) 0.6 10 ^3/uL (0-1.3); Monocytes % (auto) 8.5 % (0.0-12.0); Neutrophils # (auto) 5.4 10 ^3/uL (1.6-8.6); Platelet Count (auto) 121 10^3/uL (140-450); Red Blood Cells 4.14 10^6/uL (4.5-5.90); Red Cell Distribution Width 13.3 % (11.8-14.3); White Blood Cell 7.1 10^3/uL (4.4-10.8)
[2020-12-08 08:06] LABS: Albumin 2.8 g/dL (3.4-5.0); Calcium 8.6 mg/dL (8.5-10.1); Potassium 3.7 mmol/L (3.5-5.1)
[2020-12-08 08:10] LABS: BUN/Creatinine Ratio 21.1; Bilirubin, Total 0.7 mg/dL (0.2-1.0); CRP High Sensitivity 0.93 mg/dL (< 0.3); Total Protein 6.5 g/dL (6.4-8.2)
[2020-12-08 08:18] LABS: INR 0.99 (0.9-1.15); Partial Thromboplastin Time 25.9 sec (23.0-31.2)
[2020-12-08 08:30] VITALS: BP 113/67
[2020-12-08] MEDS: ASCORBIC ACID 1,000 MG TAB PO SCH (09:20)
[2020-12-08] MEDS: FAMOTIDINE (10MG/ML) 2ML VL IV SCH ×2 (09:20→21:50)
[2020-12-08] MEDS: ASPirin 81 mg TAB PO SCH (09:20)
[2020-12-08] MEDS: CHOLECALCIFEROL (VITD3) 2,000 UNIT CAP/TAB PO SCH (09:20)
[2020-12-08] MEDS: ZINC SULFATE 220mg CAP or TAB PO SCH (09:20)
[2020-12-08] MEDS: DOPamine 1600MCG/ML D5W 250 ML IV SCH (12:04)
[2020-12-08 12:30] VITALS: BP 104/68
[2020-12-08 17:00] VITALS: BP 97/58
[2020-12-08] MEDS ORDERED: WARFARIN SODIUM 2.5 MG TAB PO ONE (17:00)
[2020-12-08] MEDS: TERAZOSIN HCL 5 MG CAP PO SCH (21:51)
[2020-12-08 22:00] VITALS: BP 119/76
[2020-12-09 05:00] VITALS: BP 81/48
[2020-12-09] MEDS: DOPamine 1600MCG/ML D5W 250 ML IV SCH ×2 (05:28→22:26)
[2020-12-09] MEDS: LEVOTHYROXINE SODIUM 25 MCG TAB PO SCH (05:29)
[2020-12-09] MEDS: MIDODRINE HCL 10 MG TAB PO SCH ×3 (05:29→17:41)
[2020-12-09] MEDS: ACCU-CHEK COMFORT CURVE STRIP VI SCH ×4 (05:29→21:06)
[2020-12-09] MEDS: InsuLIN REG 1unit/0.01ml Soln (100units/ml) SC SCH ×4 (05:39→21:08)
[2020-12-09] MEDS ORDERED: SODIUM CHLORIDE 0.9% 500 ML IV ONE (07:00)
[2020-12-09 07:40] LABS: Basophils # (auto) 0 10 ^3/uL (0-0.2); Basophils % (auto) 0.2 % (0.0-2.0); Eosinophils # (auto) 0 10 ^3/uL (0-0.8); Eosinophils % (auto) 0.5 % (0.0-7.0); Hematocrit 38.6 % (41.0-53.0); Hemoglobin 13.7 g/dL (13.5-17.5); INR 1.13 (0.9-1.15); Lymphocytes # (auto) 1.4 10 ^3/uL (0.4-5.4); Lymphocytes % (auto) 20.9 % (10.0-50.0); Mean Corpuscular Hgb Conc. 35.5 g/dL (32.0-36.0); Mean Corpuscular Volume 90.2 fL (80.0-100.0); Monocytes # (auto) 0.6 10 ^3/uL (0-1.3); Monocytes % (auto) 8.4 % (0.0-12.0); Neutrophils # (auto) 4.7 10 ^3/uL (1.6-8.6); Nucleated Red Blood Cells % 0.1 %; Platelet Count (auto) 131 10^3/uL (140-450); Red Blood Cells 4.28 10^6/uL (4.5-5.90); Red Cell Distribution Width 12.9 % (11.8-14.3); White Blood Cell 6.7 10^3/uL (4.4-10.8)
[2020-12-09 08:30] VITALS: BP 126/66
[2020-12-09] MEDS: ASCORBIC ACID 1,000 MG TAB PO SCH (09:47)
[2020-12-09] MEDS: ASPirin 81 mg TAB PO SCH (09:47)
[2020-12-09] MEDS: ZINC SULFATE 220mg CAP or TAB PO SCH (09:47)
[2020-12-09] MEDS: CHOLECALCIFEROL (VITD3) 2,000 UNIT CAP/TAB PO SCH (09:47)
[2020-12-09] MEDS: FAMOTIDINE (10MG/ML) 2ML VL IV SCH ×2 (09:47→21:06)
[2020-12-09 12:30] VITALS: BP 89/53
[2020-12-09] MEDS ORDERED: FLUDROCORTISONE ACETATE 0.1 MG TAB PO ONE (12:45)
[2020-12-09] MEDS: DOCUSATE SOD 100 MG CAP PO PRN (14:10)
[2020-12-09 17:00] VITALS: BP 94/57
[2020-12-09] MEDS ORDERED: WARFARIN SODIUM 2.5 MG TAB PO ONE (17:00)
[2020-12-09] MEDS: ALBUTEROL SULF HFA 90MCG INH 200DOSE IN PRN (20:15)
[2020-12-09] MEDS: TERAZOSIN HCL 5 MG CAP PO SCH (21:58)
[2020-12-09 22:21] VITALS: BP 94/48
[2020-12-10 05:00] VITALS: BP 100/59
[2020-12-10] MEDS: MIDODRINE HCL 10 MG TAB PO SCH ×3 (05:33→17:40)
[2020-12-10] MEDS: ACCU-CHEK COMFORT CURVE STRIP VI SCH ×4 (05:33→22:09)
[2020-12-10] MEDS: LEVOTHYROXINE SODIUM 25 MCG TAB PO SCH (05:33)
[2020-12-10] MEDS: InsuLIN REG 1unit/0.01ml Soln (100units/ml) SC SCH ×4 (05:33→22:10)
[2020-12-10 06:52] LABS: Basophils # (auto) 0 10 ^3/uL (0-0.2); Basophils % (auto) 0.3 % (0.0-2.0); Eosinophils # (auto) 0.1 10 ^3/uL (0-0.8); Eosinophils % (auto) 0.9 % (0.0-7.0); Hematocrit 37.1 % (41.0-53.0); Hemoglobin 13.4 g/dL (13.5-17.5); Lymphocytes # (auto) 1.4 10 ^3/uL (0.4-5.4); Lymphocytes % (auto) 19.1 % (10.0-50.0); Mean Corpuscular Hemoglobin 32.4 pg (28.0-32.0); Mean Corpuscular Hgb Conc. 36.1 g/dL (32.0-36.0); Mean Corpuscular Volume 89.8 fL (80.0-100.0); Monocytes # (auto) 0.6 10 ^3/uL (0-1.3); Monocytes % (auto) 8.5 % (0.0-12.0); Neutrophils # (auto) 5.1 10 ^3/uL (1.6-8.6); Neutrophils % (auto) 71.2 % (37.0-80.0); Nucleated Red Blood Cells % 0.1 %; Platelet Count (auto) 139 10^3/uL (140-450); Red Blood Cells 4.14 10^6/uL (4.5-5.90); Red Cell Distribution Width 13.3 % (11.8-14.3); White Blood Cell 7.2 10^3/uL (4.4-10.8)
[2020-12-10 07:09] LABS: Albumin 2.9 g/dL (3.4-5.0)
[2020-12-10 07:11] LABS: INR 1.21 (0.9-1.15)
[2020-12-10 08:50] VITALS: BP 130/72
[2020-12-10] MEDS: ASPirin 81 mg TAB PO SCH ×2 (10:00→10:17)
[2020-12-10] MEDS: ZINC SULFATE 220mg CAP or TAB PO SCH (10:17)
[2020-12-10] MEDS: FAMOTIDINE (10MG/ML) 2ML VL IV SCH ×2 (10:17→22:00)
[2020-12-10] MEDS: FLUDROCORTISONE ACETATE 0.1 MG TAB PO SCH (10:17)
[2020-12-10] MEDS: CHOLECALCIFEROL (VITD3) 2,000 UNIT CAP/TAB PO SCH (10:17)
[2020-12-10] MEDS: ASCORBIC ACID 1,000 MG TAB PO SCH (10:17)
[2020-12-10 13:23] VITALS: BP 118/69
[2020-12-10] MEDS ORDERED: VANCOMYCIN 1GM/250ML 0 ML IV ONE (14:03)
[2020-12-10] MEDS ORDERED: VANCOMYCIN HCL 1000 MG VL ONE ×2 (14:03→14:04)
[2020-12-10] MEDS ORDERED: VANCOMYCIN 1GM/250ML 250 ML IV ONE (14:04)
[2020-12-10] MEDS ORDERED: LIDOCAINE 2%HCL (LOCAL ANESTH.) INJ 20ML MDV ONE (14:04)
[2020-12-10] MEDS ORDERED: fentaNYL CITRATE 100 MCG/2 ML VL ONE (14:19)
[2020-12-10] MEDS ORDERED: diphenhdrAMINE HCL 50 MG/1 ML VL ONE (14:19)
[2020-12-10] MEDS ORDERED: MIDAZOLAM HCL 1MG/1ML-2 ML VIAL ONE ×2 (14:20→15:10)
[2020-12-10 16:45] VITALS: BP 96/65
[2020-12-10 17:00] VITALS: BP 92/74
[2020-12-10] MEDS: ALBUTEROL SULF HFA 90MCG INH 200DOSE IN PRN (19:50)
[2020-12-10 22:00] VITALS: BP 101/65
[2020-12-10] MEDS: VANCOMYCIN 1GM/250ML 250 ML IV SCH (22:00)
[2020-12-10] MEDS: TERAZOSIN HCL 5 MG CAP PO SCH (22:22)
[2020-12-11 05:00] VITALS: BP 100/52
[2020-12-11] MEDS: InsuLIN REG 1unit/0.01ml Soln (100units/ml) SC SCH ×4 (05:59→21:30)
[2020-12-11] MEDS: ACCU-CHEK COMFORT CURVE STRIP VI SCH ×4 (05:59→21:29)
[2020-12-11] MEDS: LEVOTHYROXINE SODIUM 25 MCG TAB PO SCH (06:06)
[2020-12-11] MEDS: MIDODRINE HCL 10 MG TAB PO SCH ×3 (06:06→17:15)
[2020-12-11 06:21] LABS: Basophils # (auto) 0 10 ^3/uL (0-0.2); Basophils % (auto) 0.3 % (0.0-2.0); Eosinophils # (auto) 0 10 ^3/uL (0-0.8); Eosinophils % (auto) 0.6 % (0.0-7.0); Hematocrit 34.4 % (41.0-53.0); Hemoglobin 12.2 g/dL (13.5-17.5); Lymphocytes # (auto) 1.1 10 ^3/uL (0.4-5.4); Lymphocytes % (auto) 15.2 % (10.0-50.0); Mean Corpuscular Hemoglobin 32.2 pg (28.0-32.0); Mean Corpuscular Hgb Conc. 35.5 g/dL (32.0-36.0); Mean Corpuscular Volume 90.6 fL (80.0-100.0); Monocytes # (auto) 0.7 10 ^3/uL (0-1.3); Monocytes % (auto) 9.3 % (0.0-12.0); Neutrophils # (auto) 5.3 10 ^3/uL (1.6-8.6); Neutrophils % (auto) 74.6 % (37.0-80.0); Nucleated Red Blood Cells % 0.1 %; Platelet Count (auto) 132 10^3/uL (140-450); Red Cell Distribution Width 13.2 % (11.8-14.3); White Blood Cell 7.1 10^3/uL (4.4-10.8)
[2020-12-11 06:45] LABS: INR 1.15 (0.9-1.15)
[2020-12-11 08:38] VITALS: BP 101/64
[2020-12-11] MEDS: ASCORBIC ACID 1,000 MG TAB PO SCH (10:15)
[2020-12-11] MEDS: FLUDROCORTISONE ACETATE 0.1 MG TAB PO SCH (10:15)
[2020-12-11] MEDS: ZINC SULFATE 220mg CAP or TAB PO SCH (10:15)
[2020-12-11] MEDS: FAMOTIDINE (10MG/ML) 2ML VL IV SCH ×2 (10:15→21:28)
[2020-12-11] MEDS: VANCOMYCIN 1GM/250ML 250 ML IV SCH (10:15)
[2020-12-11] MEDS: ASPirin 81 mg TAB PO SCH (10:15)
[2020-12-11] MEDS: CHOLECALCIFEROL (VITD3) 2,000 UNIT CAP/TAB PO SCH (10:16)
[2020-12-11 16:51] VITALS: BP 102/61
[2020-12-11] MEDS ORDERED: WARFARIN SODIUM 2.5 MG TAB PO ONE (17:00)
[2020-12-11] MEDS: ALBUTEROL SULF HFA 90MCG INH 200DOSE IN PRN (19:25)
[2020-12-11 20:45] VITALS: BP 102/61
[2020-12-11] MEDS: APIXABAN 5 MG TAB PO SCH (21:28)
[2020-12-11 21:30] VITALS: BP 96/62
[2020-12-11] MEDS: TERAZOSIN HCL 5 MG CAP PO SCH (21:36)
[2020-12-12 05:00] VITALS: BP 85/54
[2020-12-12 06:07] LABS: Basophils # (auto) 0 10 ^3/uL (0-0.2); Basophils % (auto) 0.3 % (0.0-2.0); Eosinophils # (auto) 0.1 10 ^3/uL (0-0.8); Eosinophils % (auto) 0.9 % (0.0-7.0); Hematocrit 34.2 % (41.0-53.0); Hemoglobin 12.1 g/dL (13.5-17.5); Lymphocytes # (auto) 0.9 10 ^3/uL (0.4-5.4); Lymphocytes % (auto) 14.1 % (10.0-50.0); Mean Corpuscular Hemoglobin 31.9 pg (28.0-32.0); Mean Corpuscular Hgb Conc. 35.4 g/dL (32.0-36.0); Mean Corpuscular Volume 90.3 fL (80.0-100.0); Monocytes # (auto) 0.6 10 ^3/uL (0-1.3); Neutrophils # (auto) 4.8 10 ^3/uL (1.6-8.6); Neutrophils % (auto) 75.7 % (37.0-80.0); Platelet Count (auto) 133 10^3/uL (140-450); Red Blood Cells 3.79 10^6/uL (4.5-5.90); Red Cell Distribution Width 13.3 % (11.8-14.3); White Blood Cell 6.3 10^3/uL (4.4-10.8)
[2020-12-12] MEDS: LEVOTHYROXINE SODIUM 25 MCG TAB PO SCH (06:18)
[2020-12-12] MEDS: MIDODRINE HCL 10 MG TAB PO SCH (06:18)
[2020-12-12] MEDS: ACCU-CHEK COMFORT CURVE STRIP VI SCH (06:18)
[2020-12-12] MEDS: InsuLIN REG 1unit/0.01ml Soln (100units/ml) SC SCH (06:19)
[2020-12-12 06:24] VITALS: BP 96/62
[2020-12-12 06:27] LABS: Calcium 8.2 mg/dL (8.5-10.1); Potassium 3.4 mmol/L (3.5-5.1)
[2020-12-12 06:31] LABS: BUN/Creatinine Ratio 16.7
[2020-12-12 08:48] VITALS: BP 106/65
[2020-12-12] MEDS: ASPirin 81 mg TAB PO SCH (10:08)
[2020-12-12] MEDS: FLUDROCORTISONE ACETATE 0.1 MG TAB PO SCH (10:08)
[2020-12-12] MEDS: ZINC SULFATE 220mg CAP or TAB PO SCH (10:08)
[2020-12-12] MEDS: APIXABAN 5 MG TAB PO SCH (10:08)
[2020-12-12] MEDS: ASCORBIC ACID 1,000 MG TAB PO SCH (10:09)
[2020-12-12] MEDS: CHOLECALCIFEROL (VITD3) 2,000 UNIT CAP/TAB PO SCH (10:09)
[2020-12-18] MEDS ORDERED: APIXABAN 5 MG TAB PO SCH (22:00)
== END 2020-12-12 10:46 | disposition left against medical advice (07) | DRG 242 ==
LOC: ER 09:24 → TELE 09:25 → TELE-WESTW 11-29 15:35
PROVIDERS: ADMIT Hospitalist; ATTEND Internal Medicine
PROC: 0JH606Z Insertion of Pacemaker, Dual Chamber into Chest Subcutaneous Tissue and Fascia, Open Approach (ICD-10-PCS; principal; 2020-12-10)
PROC: 02HK3JZ Insertion of Pacemaker Lead into Right Ventricle, Percutaneous Approach (ICD-10-PCS; 2020-12-10)
PROC: 02H63JZ Insertion of Pacemaker Lead into Right Atrium, Percutaneous Approach (ICD-10-PCS; 2020-12-10)
PROC: 05HA33Z Insertion of Infusion Device into Left Brachial Vein, Percutaneous Approach (ICD-10-PCS; 2020-12-10)
DX: R00.1 Bradycardia, unspecified (principal); U07.1 COVID-19; J12.82 Pneumonia due to coronavirus disease 2019; J96.01 Acute respiratory failure with hypoxia; E43 Unspecified severe protein-calorie malnutrition; E87.1 Hypo-osmolality and hyponatremia; D68.69 Other thrombophilia; I82.411 Acute embolism and thrombosis of right femoral vein; Z53.29 Procedure and treatment not carried out because of patient's decision for other reasons; E78.5 Hyperlipidemia, unspecified; I10 Essential (primary) hypertension; E11.9 Type 2 diabetes mellitus without complications; N40.0 Benign prostatic hyperplasia without lower urinary tract symptoms; E02 Subclinical iodine-deficiency hypothyroidism; J45.909 Unspecified asthma, uncomplicated; Z68.25 Body mass index [BMI] 25.0-25.9, adult; Z79.899 Other long term (current) drug therapy
CPT/HCPCS: 36415; 36600; 71045; 71275; 80048; 80053; 80061; 80307; 81001; 82040; 82306; 82565; 82728; 82805; 82962; 83605; 83615; 83735; 83880; 84100; 84439; 84443; 84484; 85025; 85379; 85610; 85730; 86141; 87040; 87081; 87086; 87426; 87804; 93005; 93306; 93970; 94640; 96365; 96366; 96368; 96372; 97163; 99152; 99153; 99291; C1785; G0378; J0696; J1100; J1815; J1956; J2250; J3490; P9047

== ENCOUNTER → 2020-12-23 | Outpatient (CLI) | payer BC ==
[~2020-12-23] MED LIST changes: -ASPI-543 PO; +ATOR20TA50 PO; +BACL10TA PO; +ERGO1CAP12 PO; +LEVO-28 PO; +LISI-275 PO; +METF-370 PO; +TERA5CAP42 PO
[2020-12-23 12:34] LABS: Albumin 3.1 g/dL (3.4-5.0)
[2020-12-23 12:38] LABS: Bilirubin, Direct 0.2 mg/dL (0-0.2); Bilirubin, Total 0.6 mg/dL (0.2-1.0); Total Protein 7.3 g/dL (6.4-8.2)
== END | disposition home or self-care (01) ==
LOC: LAB 11:06
PROVIDERS: ATTEND Internal Medicine
DX: E78.5 Hyperlipidemia, unspecified (principal)
CPT/HCPCS: 36415; 80076; 84153; 84154

== ENCOUNTER → 2021-01-07 | Outpatient (CLI) | payer BC | END | disposition home or self-care (01) | LOC: LAB 10:08 | PROVIDERS: ATTEND Internal Medicine | DX: E11.9 Type 2 diabetes mellitus without complications (principal); R97.20 Elevated prostate specific antigen [PSA] | CPT/HCPCS: 36415; 82043; 83036; 84443 ==

== ENCOUNTER → 2021-02-24 | Outpatient (CLI) | payer BC ==
[2021-02-24 07:56] LABS: Basophils # (auto) 0 10 ^3/uL (0-0.2); Basophils % (auto) 0.4 % (0.0-2.0); Eosinophils # (auto) 0.1 10 ^3/uL (0-0.8); Eosinophils % (auto) 2.3 % (0.0-7.0); Hematocrit 41.7 % (41.0-53.0); Hemoglobin 14.3 g/dL (13.5-17.5); Lymphocytes % (auto) 31.9 % (10.0-50.0); Mean Corpuscular Hemoglobin 30.8 pg (28.0-32.0); Mean Corpuscular Hgb Conc. 34.2 g/dL (32.0-36.0); Mean Corpuscular Volume 90.1 fL (80.0-100.0); Monocytes # (auto) 0.6 10 ^3/uL (0-1.3); Monocytes % (auto) 9.6 % (0.0-12.0); Neutrophils # (auto) 3.4 10 ^3/uL (1.6-8.6); Neutrophils % (auto) 55.8 % (37.0-80.0); Nucleated Red Blood Cells % 0.1 %; Platelet Count (auto) 137 10^3/uL (140-450); Red Blood Cells 4.63 10^6/uL (4.5-5.90); Red Cell Distribution Width 13.6 % (11.8-14.3); White Blood Cell 6.2 10^3/uL (4.4-10.8)
== END | disposition home or self-care (01) ==
LOC: LAB 07:21
PROVIDERS: ATTEND Internal Medicine
DX: Z12.11 Encounter for screening for malignant neoplasm of colon (principal)
CPT/HCPCS: 36415; 85025

== ENCOUNTER 2021-04-08 12:28 | Day surgery (SDC) | payer BC ==
[2021-04-03 11:34] LABS: Basophils # (auto) 0 10 ^3/uL (0-0.2); Basophils % (auto) 0.6 % (0.0-2.0); Eosinophils # (auto) 0.1 10 ^3/uL (0-0.8); Eosinophils % (auto) 1.6 % (0.0-7.0); Hematocrit 42.2 % (41.0-53.0); Hemoglobin 14.9 g/dL (13.5-17.5); Lymphocytes # (auto) 1.9 10 ^3/uL (0.4-5.4); Lymphocytes % (auto) 26.9 % (10.0-50.0); Mean Corpuscular Hemoglobin 31.4 pg (28.0-32.0); Mean Corpuscular Hgb Conc. 35.4 g/dL (32.0-36.0); Mean Corpuscular Volume 88.9 fL (80.0-100.0); Monocytes # (auto) 0.8 10 ^3/uL (0-1.3); Monocytes % (auto) 10.9 % (0.0-12.0); Neutrophils # (auto) 4.2 10 ^3/uL (1.6-8.6); Nucleated Red Blood Cells % 0.1 %; Platelet Count (auto) 137 10^3/uL (140-450); Red Blood Cells 4.75 10^6/uL (4.5-5.90); Red Cell Distribution Width 13.4 % (11.8-14.3); White Blood Cell 6.9 10^3/uL (4.4-10.8)
[2021-04-03 11:48] LABS: INR 1.12 (0.9-1.15); Partial Thromboplastin Time 29.1 sec (23.0-31.2)
[2021-04-03 12:05] LABS: Potassium 4.1 mmol/L (3.5-5.1)
[2021-04-03 12:11] LABS: Albumin 3.8 g/dL (3.4-5.0); Bilirubin, Total 0.5 mg/dL (0.2-1.0); Calcium 9.5 mg/dL (8.5-10.1); Total Protein 7.3 g/dL (6.4-8.2)
[~2021-04-08] VITALS: Ht 185.4 cm; Wt 96.2 kg
[~2021-04-08 12:28] MED LIST changes: -BACL10TA PO; -ERGO1CAP12 PO; -LEVO-28 PO; -LISI-275 PO; +MELO1TAB73 PO; -TERA5CAP42 PO
[2021-04-08] MEDS: fentaNYL CITRATE 100 MCG/2 ML VL ONE ×2 (14:33→14:39)
[2021-04-08] MEDS: MIDAZOLAM HCL 5 MG/ML-1ML VIAL ONE ×2 (14:33→14:39)
[2021-04-08] MEDS: diphenhdrAMINE HCL 50 MG/1 ML VL ONE ×2 (14:33→14:39)
[2021-04-08 15:10] VITALS: BP 124/73
== END 2021-04-08 15:40 | disposition home or self-care (01) ==
LOC: GI 12:28
PROVIDERS: ATTEND Internal Medicine Gastroenterology
DX: R63.4 Abnormal weight loss (principal); D12.3 Benign neoplasm of transverse colon; K57.30 Diverticulosis of large intestine without perforation or abscess without bleeding; M62.89 Other specified disorders of muscle; K64.8 Other hemorrhoids; E11.9 Type 2 diabetes mellitus without complications; Z20.822 Contact with and (suspected) exposure to COVID-19; Z96.89 Presence of other specified functional implants; Z98.890 Other specified postprocedural states; Z79.899 Other long term (current) drug therapy
CPT/HCPCS: 36415; 45385; 80053; 85025; 85610; 85730; J1200; J2250; J3010; J7030; U0003; 99152

== ENCOUNTER → 2022-07-14 | Outpatient (CLI) | payer BC ==
[2022-07-14 08:53] LABS: Cholesterol 146 mg/dL (< 200); HDL Cholesterol 57 mg/dL (40-59); LDL Cholesterol 72 mg/dL (< 100); Triglycerides 177 mg/dL (< 150)
[2022-07-14 10:22] LABS: Urine Bacteria NONE SEEN /hpf (None Seen); Urine Blood Negative /uL (Negative); Urine Mucus FEW (None Seen); Urine Specific Gravity 1.017 (1.001-1.035); Urine WBC 3 /hpf (0 - 3)
== END | disposition home or self-care (01) ==
LOC: LAB 08:02
PROVIDERS: ATTEND Internal Medicine
DX: Z12.11 Encounter for screening for malignant neoplasm of colon (principal); E11.9 Type 2 diabetes mellitus without complications
CPT/HCPCS: 36415; 80061; 81001; 82043; 83036

== ENCOUNTER → 2022-10-08 | Outpatient (CLI) | payer BC ==
[2022-10-08 10:22] LABS: Albumin 3.7 g/dL (3.4-5.0); Calcium 9.2 mg/dL (8.5-10.1); Potassium 4.3 mmol/L (3.5-5.1)
[2022-10-08 10:26] LABS: BUN/Creatinine Ratio 11.5
== END | disposition home or self-care (01) ==
LOC: LAB 09:17
PROVIDERS: ATTEND Internal Medicine
DX: E11.9 Type 2 diabetes mellitus without complications (principal); I10 Essential (primary) hypertension
CPT/HCPCS: 36415; 80053; 82043; 84153; 84154

== ENCOUNTER → 2023-02-24 | Outpatient (CLI) | payer BC ==
[2023-02-24 08:23] LABS: Basophils # (auto) 0 10 ^3/uL (0-0.2); Basophils % (auto) 0.5 % (0.0-2.0); Eosinophils # (auto) 0.2 10 ^3/uL (0-0.8); Eosinophils % (auto) 2.7 % (0.0-7.0); Hematocrit 43.3 % (41.0-53.0); Lymphocytes # (auto) 1.9 10 ^3/uL (0.4-5.4); Mean Corpuscular Hemoglobin 32.2 pg (28.0-32.0); Mean Corpuscular Hgb Conc. 34.6 g/dL (32.0-36.0); Monocytes # (auto) 0.6 10 ^3/uL (0-1.3); Monocytes % (auto) 8.5 % (0.0-12.0); Neutrophils # (auto) 3.8 10 ^3/uL (1.6-8.6); Neutrophils % (auto) 58.3 % (37.0-80.0); Nucleated Red Blood Cells % 0.5 %; Red Blood Cells 4.65 10^6/uL (4.5-5.90); Red Cell Distribution Width 13.6 % (11.8-14.3); White Blood Cell 6.5 10^3/uL (4.4-10.8)
[2023-02-24 09:17] LABS: Potassium 3.9 mmol/L (3.5-5.1)
[2023-02-24 09:24] LABS: BUN/Creatinine Ratio 9.3 (10.0-20.0); Bilirubin, Total 1.1 mg/dL (0.2-1.0); Calcium 9.5 mg/dL (8.5-10.1); Total Protein 7.6 g/dL (6.4-8.2)
[2023-02-24 09:29] LABS: Folate (Folic Acid) 14.86 ng/mL (5.38-24)
== END | disposition home or self-care (01) ==
LOC: LAB 07:59
PROVIDERS: ATTEND Internal Medicine
DX: E11.9 Type 2 diabetes mellitus without complications (principal); L40.50 Arthropathic psoriasis, unspecified; R80.9 Proteinuria, unspecified; E78.5 Hyperlipidemia, unspecified
CPT/HCPCS: 36415; 80053; 80061; 82607; 82746; 83036; 84155; 84165; 84443; 85025

== ENCOUNTER → 2023-06-16 | Outpatient (CLI) | payer BC ==
[~2023-06-16] MED LIST changes: -MELO1TAB73 PO; +MELO7.5T7 PO
== END | disposition home or self-care (01) ==
LOC: Rad HDHVI 10:36
PROVIDERS: ATTEND Internal Medicine Cardiovascular Disease
DX: I10 Essential (primary) hypertension (principal); E78.5 Hyperlipidemia, unspecified
CPT/HCPCS: 93306

== ENCOUNTER → 2023-08-11 | Day surgery (SDC) | payer BC ==
[2023-08-05 12:20] LABS: Basophils # (auto) 0 10 ^3/uL (0-0.2); Basophils % (auto) 0.4 % (0.0-2.0); Eosinophils # (auto) 0.1 10 ^3/uL (0-0.8); Eosinophils % (auto) 1.8 % (0.0-7.0); Hematocrit 41.4 % (41.0-53.0); Hemoglobin 14.1 g/dL (13.5-17.5); Lymphocytes # (auto) 1.8 10 ^3/uL (0.4-5.4); Lymphocytes % (auto) 29.2 % (10.0-50.0); Mean Corpuscular Hemoglobin 32.1 pg (28.0-32.0); Mean Corpuscular Hgb Conc. 34.2 g/dL (32.0-36.0); Mean Corpuscular Volume 93.9 fL (80.0-100.0); Monocytes # (auto) 0.6 10 ^3/uL (0-1.3); Monocytes % (auto) 9.3 % (0.0-12.0); Neutrophils # (auto) 3.8 10 ^3/uL (1.6-8.6); Neutrophils % (auto) 59.3 % (37.0-80.0); Red Cell Distribution Width 13.5 % (11.8-14.3); White Blood Cell 6.3 10^3/uL (4.4-10.8)
[2023-08-05 12:38] LABS: INR 1.06 (0.9-1.15); Partial Thromboplastin Time 25.5 SEC (24.5-34.5); Prothrombin Time 11.1 sec (9.3-11.8)
[2023-08-05 13:01] LABS: Alanine Aminotransferase 46 U/L (7-40); Albumin 4.4 g/dL (3.2-4.8); Alkaline Phosphatase 91 U/L (46-116); Anion Gap 5 (5-15); Aspartate Aminotransferase 50 U/L (13-40); BUN/Creatinine Ratio 9.8 (10.0-20.0); Bilirubin, Total 0.8 mg/dL (0.2-1.0); Blood Urea Nitrogen 9 mg/dL (9-23); Calcium 9.9 mg/dL (8.7-10.4); Carbon Dioxide 29 mmol/L (20-30); Chloride 102 mmol/L (98-107); Glucose 120 mg/dL (74-106); Potassium 5.3 mmol/L (3.5-5.1); Sodium 136 mmol/L (136-145); Total Protein 7.1 g/dL (5.7-8.2)
[2023-08-05 14:46] LABS: Urine Bacteria NONE SEEN /hpf (None Seen); Urine Blood Negative /uL (Negative); Urine Clarity Clear (Clear); Urine Color Yellow (Yellow); Urine Protein, UAD Negative (Negative); Urine Specific Gravity 1.012 (1.001-1.035); Urine Urobilinogen Normal (Negative); Urine WBC 2 /hpf (0 - 3); Urine pH 5.5 (5.0-8.0)
[~2023-08-11] VITALS: Ht 180.3 cm; Wt 98.4 kg
[~2023-08-11] MED LIST changes: +ASPI1TAB20 PO; +CIPROFLOXACIN 400MG/200ML 200 ML IV ONE; +DexAMETHasone SOD PHOS 10MG/1ML VIAL INJ IV ONE; +GLYCOPYRROLATE 0.2 MG/ML 1ML VIAL ONE; +KETOROLAC TROMETH 60MG/2ML VIAL ONE; +LIDOCAINE 2% (LOCAL ANESTH.) PF 5ml SDV ONE; +ONDANSETRON HCL 4 MG/2 ML VIAL ONE; +PRED2.5T4 PO; +PROPOFOL 10 MG/ML 20 ML IV ONE; +fentaNYL CITRATE 100 MCG/2 ML VL ONE
[2023-08-11 10:43] VITALS: TEMP 98; O2SAT 100
[2023-08-11 11:25] VITALS: BP 104/74; PULSE 81; RESP 16; O2SAT 98
== END | disposition home or self-care (01) ==
LOC: SUR 06:58
PROVIDERS: ATTEND Urology
DX: R97.20 Elevated prostate specific antigen [PSA] (principal); N40.0 Benign prostatic hyperplasia without lower urinary tract symptoms; E11.9 Type 2 diabetes mellitus without complications; I10 Essential (primary) hypertension; Z95.0 Presence of cardiac pacemaker; Z98.890 Other specified postprocedural states; Z79.899 Other long term (current) drug therapy; Z79.84 Long term (current) use of oral hypoglycemic drugs
CPT/HCPCS: 36415; 55700; 80053; 81001; 82962; 85025; 85610; 85730; 87086; J0744; J1100; J1885; J2001; J2405; J2704; J3010

== ENCOUNTER → 2023-08-22 | Outpatient (CLI) | payer BC ==
[~2023-08-22] MED LIST changes: -CIPROFLOXACIN 400MG/200ML 200 ML IV ONE; -DexAMETHasone SOD PHOS 10MG/1ML VIAL INJ IV ONE; -GLYCOPYRROLATE 0.2 MG/ML 1ML VIAL ONE; -KETOROLAC TROMETH 60MG/2ML VIAL ONE; -LIDOCAINE 2% (LOCAL ANESTH.) PF 5ml SDV ONE; -ONDANSETRON HCL 4 MG/2 ML VIAL ONE; -PROPOFOL 10 MG/ML 20 ML IV ONE; -fentaNYL CITRATE 100 MCG/2 ML VL ONE
[2023-08-22 09:50] LABS: Anion Gap 10 (5-15); Carbon Dioxide 26 mmol/L (20-30); Chloride 104 mmol/L (98-107); Sodium 140 mmol/L (136-145)
[2023-08-22 09:52] LABS: Calcium 9.7 mg/dL (8.5-10.1)
[2023-08-22 09:56] LABS: Creatinine, Urine 168.42 mg/dL (30.0-125.0); Glucose 218 mg/dL (74-106)
[2023-08-22 09:57] LABS: BUN/Creatinine Ratio 10.6 (10.0-20.0); Blood Urea Nitrogen 10 mg/dL (9-23)
[2023-08-22 11:15] LABS: Free T4 (Free Thyroxine) 1.07 ng/dL (0.89-1.76)
== END | disposition home or self-care (01) ==
LOC: LAB 08:58
PROVIDERS: ATTEND Internal Medicine
DX: E11.9 Type 2 diabetes mellitus without complications (principal)
CPT/HCPCS: 36415; 80048; 82043; 82570; 83036; 84439; 84443; 84481

== ENCOUNTER → 2023-10-14 | Outpatient (CLI) | payer BC | END | disposition home or self-care (01) | LOC: LAB 08:24 | PROVIDERS: ATTEND Internal Medicine | DX: C61 Malignant neoplasm of prostate (principal) | CPT/HCPCS: 36415; 82565; 84520 ==

== ENCOUNTER → 2024-03-26 | Outpatient (CLI) | payer BC | END | disposition home or self-care (01) | LOC: LAB 08:36 | PROVIDERS: ATTEND Radiology Radiation Oncology | DX: C61 Malignant neoplasm of prostate (principal) | CPT/HCPCS: 84153 ==

== ENCOUNTER → 2024-04-18 | Outpatient (CLI) | payer BC | END | disposition home or self-care (01) | LOC: Rad HDHVI 10:40 | PROVIDERS: ATTEND Internal Medicine Cardiovascular Disease | DX: I37.1 Nonrheumatic pulmonary valve insufficiency (principal); E78.5 Hyperlipidemia, unspecified; Z95.0 Presence of cardiac pacemaker | CPT/HCPCS: 93306 ==

== ENCOUNTER → 2024-04-23 | Outpatient (CLI) | payer BC ==
[2024-04-23 08:39] LABS: Albumin 4.5 g/dL (3.2-4.8); Bilirubin, Direct 0.3 mg/dL (<0.3); Bilirubin, Total 0.7 mg/dL (0.2-1.0); Total Protein 6.9 g/dL (5.7-8.2)
== END | disposition home or self-care (01) ==
LOC: LAB 07:34
PROVIDERS: ATTEND Internal Medicine
DX: E11.9 Type 2 diabetes mellitus without complications (principal); E03.9 Hypothyroidism, unspecified
CPT/HCPCS: 36415; 80076; 83036; 84443

== ENCOUNTER 2024-07-02 12:08 | Emergency (ER) | payer BC ==
[~2024-07-02] VITALS: Ht 180.3 cm; Wt 97.9 kg
[2024-07-02 12:08] VITALS: BP 145/81; RESP 18; O2SAT 97
[2024-07-02 12:54] VITALS: PULSE 81
[2024-07-02 13:25] LABS: Eosinophils # (auto) 0.2 10 ^3/uL (0-0.8); Hemoglobin 13.2 g/dL (13.5-17.5); Lymphocytes # (auto) 1.5 10 ^3/uL (0.4-5.4); Monocytes # (auto) 0.7 10 ^3/uL (0-1.3)
[2024-07-02 13:29] LABS: Basophils # (auto) 0.1 10 ^3/uL (0-0.2); Basophils % (auto) 0.7 % (0.0-2.0); Eosinophils % (auto) 2.4 % (0.0-7.0); Hematocrit 36.8 % (41.0-53.0); Lymphocytes % (auto) 18.8 % (10.0-50.0); Mean Corpuscular Hemoglobin 34.8 pg (28.0-32.0); Mean Corpuscular Hgb Conc. 35.9 g/dL (32.0-36.0); Mean Corpuscular Volume 96.8 fL (80.0-100.0); Monocytes % (auto) 9.3 % (0.0-12.0); Neutrophils # (auto) 5.5 10 ^3/uL (1.6-8.6); Neutrophils % (auto) 68.8 % (37.0-80.0); Nucleated Red Blood Cells % 0.1 %; Platelet Count (auto) 148 10^3/uL (140-450); Red Cell Distribution Width 13.1 % (11.8-14.3)
[2024-07-02 13:45] LABS: Alanine Aminotransferase 73 U/L (7-40); Albumin 4.7 g/dL (3.2-4.8); Alkaline Phosphatase 94 U/L (46-116); Anion Gap 8 (5-15); Aspartate Aminotransferase 50 U/L (13-40); BUN/Creatinine Ratio 23.9 (10.0-20.0); Bilirubin, Total 0.7 mg/dL (0.2-1.0); Blood Urea Nitrogen 21 mg/dL (9-23); Calcium 10.2 mg/dL (8.7-10.4); Carbon Dioxide 26 mmol/L (20-30); Chloride 106 mmol/L (98-107); Glucose 135 mg/dL (74-106); Potassium 4.5 mmol/L (3.5-5.1); Sodium 140 mmol/L (136-145)
== END 2024-07-02 16:54 | disposition left against medical advice (07) ==
LOC: ER 12:08
DX: R42 Dizziness and giddiness (principal); Z53.21 Procedure and treatment not carried out due to patient leaving prior to being seen by health care provider
CPT/HCPCS: 36415; 71045; 80053; 83605; 84484; 85025; 93005

== ENCOUNTER → 2024-07-31 | Outpatient (CLI) | payer BC ==
[2024-07-31 09:17] LABS: Albumin 4.2 g/dL (3.2-4.8); Bilirubin, Direct 0.2 mg/dL (<0.3); Bilirubin, Total 0.7 mg/dL (0.2-1.0); Total Protein 6.7 g/dL (5.7-8.2)
== END | disposition home or self-care (01) ==
LOC: LAB 08:13
PROVIDERS: ATTEND Internal Medicine
DX: E11.9 Type 2 diabetes mellitus without complications (principal); C61 Malignant neoplasm of prostate
CPT/HCPCS: 36415; 80076; 83036; 84153

== ENCOUNTER → 2024-08-30 | Outpatient (CLI) | payer BC ==
--- NOTE | 2024-08-30 15:08 | DVH ---
EXAM: NM BONE WHOLE BODY History: PROSTATE CA Comparison Study: NM BONE WHOLE BODY on DOS: 10/06/23 TECHNIQUE: At approximately 3 hours following intravenous administration 23.4 mCi of Tc-99m MDP, ante rior and posterior whole body planar images were obtained. FINDINGS: Focal radiotracer uptake along the costochondral junction of left rib 6. Physiologic radiotracer distribution in bilateral kidneys and urinary bladder. Degenerative changes in the shoulders, wrists, knees, and feet. IMPRESSION: 1. No defininte scintigraphic evidence of osteoblastic metastases. 2. Focal radiotracer uptake along the costochondral junction of left rib 6, nonspecific. Attention on follow up.
== END | disposition home or self-care (01) ==
LOC: XYW 09:04
PROVIDERS: ATTEND Internal Medicine
DX: C61 Malignant neoplasm of prostate (principal); M19.012 Primary osteoarthritis, left shoulder; M19.011 Primary osteoarthritis, right shoulder; M19.032 Primary osteoarthritis, left wrist; M19.031 Primary osteoarthritis, right wrist; M17.0 Bilateral primary osteoarthritis of knee; M19.072 Primary osteoarthritis, left ankle and foot; M19.071 Primary osteoarthritis, right ankle and foot
CPT/HCPCS: 78306; A9503

== ENCOUNTER → 2024-09-26 | Outpatient (CLI) | payer BC ==
[2024-09-26 10:36] LABS: Urine Bacteria None Seen /hpf (None Seen)
[2024-09-26 11:23] LABS: Erythrocyte Sedimentation Rate 14 mm/hr (0-20)
[2024-09-26 11:24] LABS: Albumin 4.3 g/dL (3.2-4.8); Alkaline Phosphatase 81 U/L (46-116); Anion Gap 7 (5-15); BUN/Creatinine Ratio 15.2 (10.0-20.0); Bilirubin, Total 0.9 mg/dL (0.2-1.0); Blood Urea Nitrogen 15 mg/dL (9-23); Calcium 10.3 mg/dL (8.7-10.4); Carbon Dioxide 27 mmol/L (20-31); Chloride 104 mmol/L (98-107); Potassium 4.6 mmol/L (3.5-5.1); Sodium 138 mmol/L (136-145)
[2024-09-26 11:25] LABS: Total Protein 6.7 g/dL (5.7-8.2)
[2024-09-26 11:33] LABS: Alanine Aminotransferase 71 U/L (7-40); Aspartate Aminotransferase 73 U/L (13-40); Glucose 170 mg/dL (74-106)
[2024-09-26 11:47] LABS: Urine Blood Negative /uL (Negative); Urine Clarity Clear (Clear); Urine Color Yellow (Yellow); Urine Mucus FEW (None Seen); Urine Protein, UAD TRACE (Negative); Urine Specific Gravity 1.023 (1.001-1.035); Urine Urobilinogen Normal (Negative); Urine WBC <1 /hpf (0 - 3)
== END | disposition home or self-care (01) ==
LOC: LAB 10:13
PROVIDERS: ATTEND Internal Medicine
DX: D64.9 Anemia, unspecified (principal); R79.89 Other specified abnormal findings of blood chemistry; M54.10 Radiculopathy, site unspecified
CPT/HCPCS: 36415; 80053; 81001; 85652

== ENCOUNTER → 2024-10-11 | Outpatient (CLI) | payer BC | END | disposition home or self-care (01) | LOC: LAB 09:28 | PROVIDERS: ATTEND Radiology Radiation Oncology | DX: C61 Malignant neoplasm of prostate (principal) | CPT/HCPCS: 84153 ==

== ENCOUNTER → 2024-11-08 | Outpatient (CLI) | payer BC ==
[2024-11-08 09:10] LABS: Albumin 4.7 g/dL (3.2-4.8); Bilirubin, Direct 0.3 mg/dL (<0.3); Bilirubin, Total 0.8 mg/dL (0.2-1.0); Total Protein 7.4 g/dL (5.7-8.2)
== END | disposition home or self-care (01) ==
LOC: LAB 08:13
PROVIDERS: ATTEND Internal Medicine
DX: E11.9 Type 2 diabetes mellitus without complications (principal); R79.89 Other specified abnormal findings of blood chemistry
CPT/HCPCS: 36415; 80076; 83036; 84153

== ENCOUNTER → 2024-11-13 | Outpatient (CLI) | payer BC ==
[2024-11-13 12:03] LABS: Albumin 4.7 g/dL (3.2-4.8); Bilirubin, Direct 0.3 mg/dL (<0.3); Bilirubin, Total 0.8 mg/dL (0.2-1.0); Total Protein 7.1 g/dL (5.7-8.2)
== END | disposition home or self-care (01) ==
LOC: LAB 08:50
PROVIDERS: ATTEND Internal Medicine
DX: R79.89 Other specified abnormal findings of blood chemistry (principal)
CPT/HCPCS: 36415; 80076

== ENCOUNTER → 2025-01-17 | Outpatient (CLI) | payer BC ==
[2025-01-17 09:52] LABS: Albumin 4.2 g/dL (3.2-4.8); Anion Gap 8 (5-15); BUN/Creatinine Ratio 13.6 (10.0-20.0); Blood Urea Nitrogen 11 mg/dL (9-23); Carbon Dioxide 29 mmol/L (20-31); Chloride 105 mmol/L (98-107); Potassium 4.8 mmol/L (3.5-5.1); Sodium 142 mmol/L (136-145); Total Protein 6.7 g/dL (5.7-8.2)
[2025-01-17 09:53] LABS: Bilirubin, Total 0.8 mg/dL (0.2-1.0)
[2025-01-17 10:06] LABS: Alanine Aminotransferase 72 U/L (7-40); Alkaline Phosphatase 133 U/L (46-116); Aspartate Aminotransferase 73 U/L (13-40); Glucose 147 mg/dL (74-106)
[2025-01-17 10:29] LABS: Creatinine, Urine 140.93 mg/dL (30.0-125.0)
== END | disposition home or self-care (01) ==
LOC: LAB 08:44
PROVIDERS: ATTEND Internal Medicine
DX: E11.9 Type 2 diabetes mellitus without complications (principal); R79.89 Other specified abnormal findings of blood chemistry
CPT/HCPCS: 36415; 80053; 82043; 82570; 83036

== ENCOUNTER → 2025-01-30 | Outpatient (CLI) | payer BC ==
[2025-01-30 10:50] LABS: Albumin 4.5 g/dL (3.2-4.8); Bilirubin, Total 0.8 mg/dL (0.2-1.0); Total Protein 7.1 g/dL (5.7-8.2)
[2025-01-31 16:13] LABS: Bilirubin, Direct 0.3 mg/dL (<0.3)
== END | disposition home or self-care (01) ==
LOC: LAB 10:04
PROVIDERS: ATTEND Internal Medicine
DX: R79.89 Other specified abnormal findings of blood chemistry (principal)
CPT/HCPCS: 36415; 80076

== ENCOUNTER 2025-03-26 09:12 | Outpatient (CLI) | payer BC | END 2025-03-26 17:00 | disposition home or self-care (01) | LOC: LAB 09:12 | PROVIDERS: ATTEND Radiology Radiation Oncology | DX: C61 Malignant neoplasm of prostate (principal) | CPT/HCPCS: 84153 ==

== ENCOUNTER 2025-05-14 07:00 | Outpatient (CLI) | payer BC ==
[2025-05-14 09:19] LABS: Albumin 4.5 g/dL (3.2-4.8); Alkaline Phosphatase 106 U/L (46-116); Anion Gap 11 (5-15); BUN/Creatinine Ratio 18.1 (10.0-20.0); Blood Urea Nitrogen 17 mg/dL (9-23); Calcium 10.3 mg/dL (8.7-10.4); Carbon Dioxide 24 mmol/L (20-31); Chloride 99 mmol/L (98-107); Potassium 3.9 mmol/L (3.5-5.1); Total Protein 7.1 g/dL (5.7-8.2); Triglycerides 118 mg/dL (< 150)
[2025-05-14 09:20] LABS: Bilirubin, Total 1.1 mg/dL (0.2-1.0); Cholesterol 128 mg/dL (< 200); HDL Cholesterol 44 mg/dL (40-59)
[2025-05-14 09:22] LABS: Alanine Aminotransferase 76 U/L (7-40); Glucose 168 mg/dL (74-106); Sodium 134 mmol/L (136-145)
== END 2025-05-14 17:00 | disposition home or self-care (01) ==
LOC: LAB 07:00
PROVIDERS: ATTEND Internal Medicine
DX: E11.21 Type 2 diabetes mellitus with diabetic nephropathy (principal); R19.7 Diarrhea, unspecified; R79.89 Other specified abnormal findings of blood chemistry
CPT/HCPCS: 36415; 80053; 80061; 82306; 82607; 84443

== ENCOUNTER 2025-07-17 09:59 | Outpatient (CLI) | payer BC ==
[2025-07-17 10:41] LABS: Hematocrit 37.6 % (41.0-53.0); Hemoglobin 13.0 g/dL (13.5-17.5); Mean Corpuscular Hemoglobin 32.0 pg (28.0-32.0); Mean Corpuscular Volume 92.6 fL (80.0-100.0); Nucleated Red Blood Cells % 0.1 %
[2025-07-17 10:59] LABS: Urine Protein, UAD TRACE (Negative)
[2025-07-17 11:24] LABS: Albumin 4.4 g/dL (3.2-4.8); Anion Gap 12 (5-15); BUN/Creatinine Ratio 16.5 (10.0-20.0); Bilirubin, Total 1.0 mg/dL (0.2-1.0); Blood Urea Nitrogen 16 mg/dL (9-23); Calcium 10.0 mg/dL (8.7-10.4); Carbon Dioxide 24 mmol/L (20-31); Chloride 102 mmol/L (98-107); Potassium 4.5 mmol/L (3.5-5.1); Sodium 138 mmol/L (136-145); Total Protein 7.2 g/dL (5.7-8.2)
[2025-07-17 11:34] LABS: Alanine Aminotransferase 66 U/L (7-40); Alkaline Phosphatase 118 U/L (46-116); Glucose 155 mg/dL (74-106)
== END 2025-07-17 17:00 | disposition home or self-care (01) ==
LOC: LAB 09:59
PROVIDERS: ATTEND Internal Medicine
DX: E11.9 Type 2 diabetes mellitus without complications (principal); R79.89 Other specified abnormal findings of blood chemistry; R42 Dizziness and giddiness
CPT/HCPCS: 36415; 80053; 81001; 83036; 85025